=== PATIENT | female | born 1965 | race Caucasian/White ===

== ENCOUNTER 2018-06-14 08:34 | Emergency (ER) | payer BC, SELFPAY ==
[2018-06-14 08:41] VITALS: BP 134/86; PULSE 79; RESP 18; TEMP 36.5; O2SAT 96
--- NOTE | 2018-06-14 08:47 | DI.RAD_ITS ---
SYMPTOMS/DIAGNOSIS: PAIN, S/P BEING STRUCK BY A LADDER LEFT WRIST: No fracture or dislocation is seen. There is a metallic foreign body at the level of the 1st metacarpophalangeal joint. This may be an old injury. LEFT HAND: There is a metallic foreign body seen at the medial aspect of the 1st metacarpophalangeal joint in the soft tissues. There is no evidence of an acute fracture or dislocation. IMPRESSION: Metallic foreign body. No acute abnormality. RIGHT WRIST: No fracture or dislocation is seen. There are minimal degenerative changes. No bony erosions are seen. IMPRESSION: No acute abnormality.
--- NOTE | 2018-06-14 08:53 | ED.GENADUL_ITS ---
Discharge Plan Discharge Details Chief Complaint: Orthopedic Clinical Impression: Contusion of right wrist, Contusion of left wrist, Contusion of hand, left Reason For Visit: bilateral wrist pain Primary Care Provider: Erich Shrestha ED Provider: Jl Marin Disposition Patient Disposition: HOME Home Meds and New Rx's Prescriptions: Continue ibuprofen 800 MG tablet 800 mg PO tid prn Qty: 90 RF: 0 Discharge Instructions Instructions: Contusion in Adults (ED) Additional Instructions: you can take 800mg ibuprofen every 8 hours and also 1000mg tylenol every 6 hours for pain as needed if you have pain in one week see your primary care provider Discharge Data Discharge Physician: Jl Marin Medical Decision Making MDM Narrative Medical decision making narrative: patient here with bilateral wrist and left hand pain s/p being struck by ladder, will xray to eval for fracture/ dislocation though suspect contusion and abrasions are the cause of your pain due to lack of significant visible deformity xrays negative, suspect sprain vs contusion. I offered braces for comfort but she declined. Will d/c home and advised if pain continues to f/u with pcp HPI - General Adult General Date/Time Provider Initiated Documentation: 06/14/18 08:43 . Limitations to Documentation: no limitations . Information obtained by: patient . History of Present Illness 52 year old F presents to the emergency department with the chief complaint of right and left hand pain, described as moderate, with intensity rated at 5. Quality is described as aching, and is localized to the left, right and upper extremity. Patient reports no radiation. Patient started experiencing this minute(s) (30) and it has been constant. Rest improves symptom(s), Movement worsens symptoms . Patient notes no other symptoms.. Patient did receive the following treatments prior to arrival, none HPI Narrative-FOR DICTATION ONLY HPI Narrative: was holding a ladder for and upper part slid and struck her posterior wrists bilaterally, no fall or head trauma Related Data Allergies Allergy/AdvReac Type Severity Reaction Status Date / Time Penicillins Allergy Intermediate RASH; HIVES Unverified 06/14/18 08:43 Latex, Natural Rubber Allergy Unknown Topical Unverified 06/14/18 08:43 Irritation General Stated Complaint: Orthopedic VAISHNAVI: 4 Review of Systems Review of Systems All systems reviewed & are unremarkable except as noted in HPI and below Constitutional Denies chills, Denies fever(s) and Denies weakness Eyes Patient Denies loss of vision ENT Denies change in voice Cardiovascular Denies chest pain and Denies dyspnea Respiratory Denies dyspnea Gastrointestinal Denies abdominal pain, Denies nausea and Denies vomiting Genitourinary Denies dysuria Musculoskeletal Denies joint swelling Integumentary/Breasts Denies rash Neurologic Denies loss of vision and Denies weakness Psychiatric Denies depression Endocrine Denies cold intolerance and Denies heat intolerance Allergic/Immunologic Reports urticaria PFSH Family History Sister Essential hypertension Depression Hyperlipidemia Sister Diabetes Depression Hyperlipidemia Mother Diabetes Essential hypertension Cerebrovascular accident Father Personal history of malignant neoplasm Grandfather Personal history of malignant neoplasm Sister Diabetes Depression Hyperlipidemia Sister Substance abuse Sister Substance abuse Depression Brother Diabetes Heart disease Hyperlipidemia Son Alcohol abuse Depression Son Alcohol abuse Daughter No problems noted. Sister Depression Hyperlipidemia Other Liver damage Medical History ACL tear Anxiety Depression Migraine Obesity Seasonal allergies Social History Smoking/Tobacco Use Status: Never Surgical History Appendectomy Arthroplasty of knee Cholecystectomy Ligation of fallopian tube Repair, ACL Exam Const General: no acute distress Orientation: alert HENMT Head: normal to inspection Ears: external ears normal General nose exam: external nose normal Mouth: moist mucous membranes Eyes General: appearance normal, both eyes and all related structures Neck Neck: normal visual inspection Resp Effort & Inspection: normal respiratory effort and able to speak in complete sentences Cardio Rate: regular rate Skin General skin exam: no rashes or lesions noted Neuro General: alert, oriented x3, moves all extremities and normal light touch, pain and propioception Extrem General: other (abrasions to both posterior wrists, does have some rom though limited on extension, has pain upon palpation to both posterior wrists, normal sensation, normal rom of the fingers, no scaphoid pain, does have some mild pain in left hand as well no pain in right hand) Psych Mental Status: mental status grossly normal Course Vital Signs Temperature 36.5 C 06/14/18 08:41 Pulse 79 06/14/18 08:41 Respiratory Rate 18 06/14/18 08:41 Blood Pressure 134/86 06/14/18 08:41 Pulse Oximetry 96 06/14/18 08:41 Temperature 36.5 C 06/14/18 08:41 Pulse 79 06/14/18 08:41 Respiratory Rate 18 06/14/18 08:41 Blood Pressure 134/86 06/14/18 08:41 Pulse Oximetry 96 06/14/18 08:41
[2018-06-14] MEDS: Ibuprofen 600 MG TAB PO (09:03)
--- NOTE | 2018-06-14 09:44 | DI.VRAD_ITS ---
EXAM: XR Left Wrist Complete, 3 or more Views EXAM DATE/TIME: 06/14/2018 8:49 AM CLINICAL HISTORY: 52 years old, female; Pain; Wrist; Left; Patient HX: Ladder fell on wrist TECHNIQUE: XR Left wrist 3 or more views. COMPARISON: No relevant prior studies available. FINDINGS: Bones/joints: No acute fracture. Soft tissues: Metallic foreign body adjacent to the thumb. Unknown etiology IMPRESSION: No acute fracture. Dictated and Authenticated by: Connie Paulino MD. Ordering:EMMIE SUNG MD
--- NOTE | 2018-06-14 09:46 | DI.VRAD_ITS ---
EXAM: XR Left Hand Complete, 3 or more Views EXAM DATE/TIME: 06/14/2018 8:49 AM CLINICAL HISTORY: 52 years old, female; Pain; Hand; Left; Patient HX: Ladder fell on hand TECHNIQUE: XR Left hand 3 or more views. COMPARISON: No relevant prior studies available. FINDINGS: Bones/joints: Degenerative changes in the radiocarpal joint. No acute fracture. Soft tissues: Metallic foreign body in the soft tissues adjacent to the thumb IMPRESSION: No acute process Dictated and Authenticated by: Connie Paulino MD. Ordering:EMMIE SUNG MD
--- NOTE | 2018-06-14 09:47 | DI.VRAD_ITS ---
EXAM: XR Right Wrist Complete, 3 or more Views EXAM DATE/TIME: 06/14/2018 8:49 AM CLINICAL HISTORY: 52 years old, female; Pain; Wrist; Right; Patient HX: Ladder fell on wrist TECHNIQUE: XR Right wrist 3 or more views. COMPARISON: No relevant prior studies available. FINDINGS: Bones/joints: Degenerative changes in the radiocarpal joint No acute fracture.. Soft tissues: Normal. IMPRESSION: No acute process Dictated and Authenticated by: Connie Paulino MD. Ordering:EMMIE SUNG MD
[2018-06-14 10:04] VITALS: BP 134/86; PULSE 79; RESP 18; TEMP 36.5; O2SAT 96
== END 2018-06-14 10:05 | disposition home or self-care (01) ==
PROVIDERS: Emergency Provider Emergency Medicine; PCP Family Medicine
DX: S60.211A Contusion of right wrist, initial encounter (principal); S60.212A Contusion of left wrist, initial encounter; S60.222A Contusion of left hand, initial encounter; W20.8XXA Other cause of strike by thrown, projected or falling object, initial encounter
CPT/HCPCS: 99284; 73110; 73130; 99283

== ENCOUNTER 2018-07-03 13:10 | Outpatient (CLI) | payer BC, SELFPAY ==
--- NOTE | 2018-07-03 11:37 | DI.RAD_ITS ---
SYMPTOMS/DIAGNOSIS: ONGOING PAIN DORSAL WRIST, INJURY, S69.90XA RIGHT WRIST: Three views. No bone or joint abnormality is identified. No radiopaque foreign bodies are seen in the soft tissues. IMPRESSION: Negative examination.
== END 2018-07-03 13:30 ==
PROVIDERS: PCP Family Medicine; Visit Provider Family Medicine
DX: M25.531 Pain in right wrist (principal); S69.91XD Unspecified injury of right wrist, hand and finger(s), subsequent encounter
CPT/HCPCS: 73110

== ENCOUNTER 2019-01-29 01:19 | Outpatient (CLI) | payer BC, SELFPAY ==
[2019-01-29 08:39] LABS: HCT 42.8 % (36.0-46.0); HGB 13.5 g/dL (12.0-15.5); Mean Corp. HGB Concentration 31.5 g/dL (32.0-36.0); Mean Corpuscular Volume 91.8 fL (80-95); Mean Platelet Volume 9.4 fL (8.0-11.0); Platelet Count 349 x1000/uL (130-400); RBC 4.66 m/cumm (4.00-5.20); White Blood Cell Count 7.41 k/cumm (4.4-10.8)
[2019-01-29 09:23] LABS: ALT 52 U/L (12-78); AST 24 U/L (15-37); Albumin 3.7 g/dL (3.4-5.0); Alkaline Phosphatase 117 U/L (46-116); Anion Gap 7.9 mmol/L (3-11); BUN 20 mg/dL (7-18); Bilirubin, Total 0.3 mg/dL (0.2-1.0); CO2 29.1 mmol/L (21.0-32.0); CREATININE 0.93 mg/dL (0.55-1.02); Calcium 8.9 mg/dL (8.5-10.1); Chloride 104 mmol/L (98-107); Glucose 114 mg/dL (70-100); Potassium 4.9 mmol/L (3.5-5.1); Sodium 141 mmol/L (136-145); TSH (W/Ref FT4) 2.27 uIU/mL (0.358-3.74); Total Protein 7.2 g/dL (6.4-8.2)
== END 2019-01-29 01:39 ==
PROVIDERS: PCP Family Medicine; Visit Provider Family Medicine
DX: F41.9 Anxiety disorder, unspecified (principal); R00.2 Palpitations
CPT/HCPCS: 36415; 80053; 85027; 84443

== ENCOUNTER 2019-02-12 02:13 | Outpatient (CLI) | payer BC, SELFPAY ==
--- NOTE | 2019-02-17 12:39 | HOLTER_ITS ---
HOLTER MONITOR DATE OF DICTATION February 17, 2019 STUDY INDICATIONS: Palpitations. REQUESTING PROVIDER Erich Shrestha M.D. FINDINGS: The patient was monitored for two days. Baseline rhythm sinus rhythm. Average heart rate 87 beats per minute, range 65 to 129 beats per minute. 2 PVCs. No VT. 3 PACs. No SVT. No pauses greater than 3 seconds. No higher degree heart block. One patient event, which did not correlate with arrhythmia. FINAL INTERPRETATION Normal study. Dev Cornelius M.D. JERRI/selvin T - 02/17/19
== END 2019-02-12 02:33 ==
PROVIDERS: PCP Family Medicine; Visit Provider Family Medicine
DX: R00.2 Palpitations (principal); I49.3 Ventricular premature depolarization; I49.1 Atrial premature depolarization
CPT/HCPCS: 93225

== ENCOUNTER 2019-02-15 17:37 | Outpatient (CLI) | payer BC, SELFPAY | END 2019-02-15 17:57 | PROVIDERS: PCP Family Medicine; Visit Provider Family Medicine | DX: R00.2 Palpitations (principal); I49.3 Ventricular premature depolarization; I49.1 Atrial premature depolarization | CPT/HCPCS: 93226 ==

== ENCOUNTER 2019-04-23 02:25 | Outpatient (CLI) | payer BC, SELFPAY ==
--- NOTE | 2019-04-23 10:10 | NS.NUTBLAN_ITS ---
DESCRIPTION/ASSESSMENT: Georgie Thacker presents for nutrition consult for newly diagnosed diabetes with focus on weight loss. A1c 6.7. She states she is symptomatic with changes in vision and peripheral neuropathy. There is concern that she may also have MS. She monitors blood sugars fasting 160-190. Georgie skips breakfast or has fruit and chocolate milk, or has 1/2 pakistani muffin, 2 sausage, grapes and pineapple, and grape juice.. Salad or meat entree from cafeteria for lunch or sandwich with chips for supper. She does not snack. She has learned to eat spaghetti squash in place of spaghetti. She feels she generally eats healthy. She has already started using smaller plates. She has back and hip pain making physical activity difficult. She admits to high stress as a single parent with significant school debt. She further admits to anxiety. She was in foster care and continues in therapy. She admits to seeing things darkly. INTERVENTION: Discussed weight management strategies; reviewed diabetes food guide. Discussed tracking food on lacey. Discussed mindful eating practices. Discussed physical activity for shorter periods daily. Discussed monitoring for meaning. PLAN: Georgie will use [employer] lacey to track her food for a couple of days She will walk or perform strengthening exercises daily. She wishes to return in 3 weeks for follow up.
== END 2019-04-23 02:45 ==
PROVIDERS: PCP Family Medicine; Visit Provider Dietitian, Registered
DX: E11.9 Type 2 diabetes mellitus without complications (principal); Z71.3 Dietary counseling and surveillance
CPT/HCPCS: 97802

== ENCOUNTER 2019-08-24 07:56 | Outpatient (CLI) | payer BC, SELFPAY ==
--- NOTE | 2019-08-24 15:33 | DI.RAD_ITS ---
EXAM: XR ANKLE LT COMPLETE INDICATION: ankle pain S92.194C ANKLE INJURY. COMPARISON: No exams were available for comparison TECHNIQUE: 2D digital imaging was performed. FINDINGS: No acute fracture or dislocation is present. There is an enthesophyte at the Achilles insertion site on the calcaneus. The soft tissues are unremarkable. IMPRESSION: No acute fracture or dislocation.
== END 2019-08-24 08:16 ==
PROVIDERS: PCP Family Medicine; Visit Provider Nurse Practitioner
DX: M25.572 Pain in left ankle and joints of left foot (principal); S99.912A Unspecified injury of left ankle, initial encounter
CPT/HCPCS: 73610

== ENCOUNTER 2019-09-22 01:15 | Outpatient (CLI) | payer BC, SELFPAY ==
--- NOTE | 2019-09-22 15:28 | DI.MAMMO_ITS ---
EXAM: MG MAMMO SCREENING CLINICAL HISTORY: screening Z12.39 TECHNIQUE: Bilateral full field digital CC and MLO mammographic images were obtained with 3D tomosyn thesis and utilizing computer aided detection (CAD). COMPARISON: Available for comparison. FINDINGS: Masses/Architectural Distortion: No suspicious masses are present. There are scattered well-circumsc ribed nodules in both breasts. Microcalcifications: No suspicious pleomorphic-type are seen. Skin Thickening/Nipple Retraction: None. IMPRESSION: 1. No significant interval change with no specific features of malignancy noted. 2. Unless there is more urgent need, screening mammography is recommended, as per [place] [employer] guidelines. BI-RADS Cat 2 - Benign Findings Breast Density - Category B - Scattered areas of fibroglandular density A negative radiographic report should not delay biopsy if a dominant or clinically suspicious mass is present. Up to ten percent of cancers are not identified on mammography. A negative report may reinforce clinical impression. Adenosis and dense breasts may obscure an underlying neoplasm. False positive reports average 6 to 10%. Patient will receive a letter notifying them of these results.
== END 2019-09-22 01:35 ==
PROVIDERS: PCP Family Medicine; Visit Provider Family Medicine
DX: Z12.31 Encounter for screening mammogram for malignant neoplasm of breast (principal); N64.59 Other signs and symptoms in breast
CPT/HCPCS: 77063; 77067

== ENCOUNTER 2020-03-17 03:01 | Outpatient (CLI) | payer BC, SELFPAY ==
[2020-03-17 09:48] LABS: Hemoglobin A1C 6.1 % (3.8-5.6)
[2020-03-17 10:14] LABS: Anion Gap 6.5 mmol/L (3-11); BUN 18 mg/dL (7-18); CO2 28.5 mmol/L (21.0-32.0); CREATININE 0.92 mg/dL (0.55-1.02); Calcium 9.4 mg/dL (8.5-10.1); Chloride 103 mmol/L (98-107); Glucose 113 mg/dL (74-106); Potassium 4.3 mmol/L (3.5-5.1); Sodium 138 mmol/L (136-145)
== END 2020-03-17 03:21 ==
PROVIDERS: PCP Family Medicine; Visit Provider Family Medicine
DX: R73.01 Impaired fasting glucose (principal); E87.5 Hyperkalemia; Z83.3 Family history of diabetes mellitus
CPT/HCPCS: 36415; 80048; 83036

== ENCOUNTER 2020-11-28 23:09 | Outpatient (REF) | payer BC, SELFPAY ==
[2020-11-28 21:57] LABS: ALT 37 U/L (14-59); AST 18 U/L (15-37); Alkaline Phosphatase 125 U/L (46-116); Anion Gap 8.7 mmol/L (3-11); BUN 17 mg/dL (7-18); Bilirubin, Total 0.3 mg/dL (0.2-1.0); CO2 26.3 mmol/L (21.0-32.0); CREATININE 0.9 mg/dL (0.55-1.02); Calcium 9.3 mg/dL (8.5-10.1); Calculated LDL 115 mg/dL (<100); Chloride 102 mmol/L (98-107); Cholesterol 216 mg/dL (<200); Glucose 95 mg/dL (74-106); HDL Cholesterol 46 mg/dL (40-60); Potassium 4.4 mmol/L (3.5-5.1); Sodium 137 mmol/L (136-145); Total Protein 7.8 g/dL (6.4-8.2); Triglyceride 276 mg/dL (<150)
[2020-12-04 16:30] LABS: 1,25-Dihydroxyvitamin D 54 pg/mL (18-78)
== END 2020-11-28 23:10 | disposition home or self-care (01) ==
LOC: LBN 23:09
PROVIDERS: Nurse Practitioner Family; PCP Family Medicine; Visit Provider Family Medicine
DX: Z00.00 Encounter for general adult medical examination without abnormal findings (principal); R73.01 Impaired fasting glucose; Z83.3 Family history of diabetes mellitus
CPT/HCPCS: 80053; 80061; 82652

== ENCOUNTER 2020-12-14 02:12 | Outpatient (CLI) | payer BC, SELFPAY ==
--- NOTE | 2020-12-14 12:26 | DI.MAMMO_ITS ---
EXAM: MG MAMMO SCREENING CLINICAL HISTORY: screening,Z12.39 TECHNIQUE: Bilateral full field digital CC and MLO mammographic images were obtained with 3D tomosyn thesis and utilizing computer aided detection (CAD). COMPARISON: Available for comparison. FINDINGS: Masses/Architectural Distortion: There are bilateral breast nodules which appears stable. Microcalcifications: No suspicious pleomorphic-type are seen. Skin Thickening/Nipple Retraction: None. IMPRESSION: 1. No significant interval change with no specific features of malignancy noted. 2. Unless there is more urgent need, screening mammography is recommended, as per [place] [employer] guidelines. BI-RADS Category 2 - Benign Findings Breast Density - Category B - Scattered areas of fibroglandular density Breast density category C or D implies that the patient has dense breast tissue. Dense breast tissue is very common and is not abnormal but dense breast tissue can make it harder to find cancer on a ma mmogram. Also, dense breast tissue may increase their breast cancer risk. This information about the result of the mammogram report was provided to the patient to raise their awareness. Use this report when you speak with the patient about their risks for breast cancer, which includes their family hist ory. At that time, you may recommend for more screening tests (Ultrasound or MRI) as they might be us eful based on their risk. A negative radiographic report should not delay biopsy if a dominant or clinically suspicious mass is present. Up to ten percent of cancers are not identified on mammography. A negative report may reinforce clinical impression. Adenosis and dense breasts may obscure an underlying neoplasm. False positive reports average 6 to 10%. Patient will receive a letter notifying them of these results.
== END 2020-12-14 02:32 ==
PROVIDERS: PCP Family Medicine; Visit Provider Nurse Practitioner Family
DX: Z12.31 Encounter for screening mammogram for malignant neoplasm of breast (principal)
CPT/HCPCS: 77063; 77067

== ENCOUNTER 2021-06-20 03:58 | Outpatient (CLI) | payer BC, SELFPAY ==
[2021-06-20 13:00] LABS: Calculated LDL 118 mg/dL (<100); Cholesterol 217 mg/dL (<200); HDL Cholesterol 48 mg/dL (40-60); Triglyceride 256 mg/dL (<150)
== END 2021-06-20 03:59 | disposition home or self-care (01) ==
LOC: LOS 03:58
PROVIDERS: PCP Nurse Practitioner Family; Visit Provider Nurse Practitioner Family
DX: E78.5 Hyperlipidemia, unspecified (principal)
CPT/HCPCS: 36415; 80061

== ENCOUNTER 2021-11-01 10:14 | Outpatient (CLI) | payer BC, SELFPAY ==
--- NOTE | 2021-11-01 08:45 | DI.RAD_ITS ---
Exam(s) XR KNEE RT 4V AP,LAT,JAYMIE,PAT EXAM: XR KNEE RT 4V AP,LAT,JAYMIE,PAT CLINICAL HISTORY: RIGHT KNEE PAIN S/P ACL REPAIR. TECHNIQUE: 2D digital imaging was performed. COMPARISON: CR RIGHT KNEE 3 VIEWS from 07/24/2014 MR MR KNEE RIGHT WO CONTRAST from 02/12/2021 FINDINGS: There is evidence of ACL surgery. No fractures. There does appear to be a moderate-sized joint effu mena. No obvious degenerative changes. No osseous lesions. IMPRESSION: Previous ACL surgery. Joint effusion. DATA REPOSITORY: RADIATION DOSE DELIVERED:
== END 2021-11-01 10:15 | disposition home or self-care (01) ==
LOC: DIORS 10:14
PROVIDERS: PCP Nurse Practitioner Family; Referring Provider Nurse Practitioner Family; Visit Provider Student in an Organized Health Care Education/Training Program
DX: M25.561 Pain in right knee (principal); Z98.890 Other specified postprocedural states
CPT/HCPCS: 73564

== ENCOUNTER 2021-11-07 00:32 | Outpatient (CLI) | payer BC, SELFPAY ==
--- NOTE | 2021-11-07 14:50 | DI.MRI_ITS ---
Exam(s) MR LOWER JOINT RT WO EXAM: MR LOWER JOINT RT WO CLINICAL HISTORY: Evaluate foreign body lateral compartment, internal derangement, M23.92, TECHNIQUE: Multiplanar multisequence MRI of the knee was performed. COMPARISON: MR MR KNEE RIGHT WO CONTRAST from 02/12/2021, performed at outside institution FINDINGS: EFFUSION: There is a moderate-sized joint effusion, similar to the previous study. There is no Neely cyst in the popliteal fossa. MARROW:There is no evidence of fracture, bone contusion, nor significant osseous lesions PATELLOFEMORAL COMPARTMENT: The quadriceps tendon is intact. The patellar ligament is intact. There is a new significant full-thickness defect in the retropatellar cartilage at the mid aspect, a finding which was not evident on the prior outside study of February 2021.This measures approximately 4 mi llimeters wide by 4 millimeters craniocaudal. There is no subjacent subarticular signal abnormality in the patella. Also no intraosseous signal to suggest recent patellar dislocation and there are no patellar retinacular tears. CRUCIATE LIGAMENTS: Anterior cruciate ligament graft is intact. It does not exhibit significant abno rmal signal nor thinning.The posterior cruciate ligament is intact. MEDIAL COMPARTMENT/MEDIAL MENISCUS: There is now a tear in the medial aspect of the posterior horn of themedial meniscus, approximately 7 millimeters in from the root, not previously present. No bucket -handle configuration. No meniscal extrusion nor intrusion. Anterior horn is intact. There is a se ptated fluid collection behind the posterior horn of the medial meniscus again noted. This may possi ronal represent a degenerative meniscal cyst.. There is been interval development of foci of full-thickness cartilage thinning over the medial femor al condyle weight-bearing surface, not previously evident on the outside study of February 2021. This edwin sures 1.5 cm AP by 4 millimeters wide at maximum and is full-thickness and was not previously present . There is no associated subarticular bone edema.There is, however, mild subarticular bone edema in the posterior aspect of medial tibial plateau, more so than previous. MEDIAL COLLATERAL LIGAMENT: Intact LATERAL COMPARTMENT/LATERAL MENISCUS: There are no obvious new tears of the lateral meniscus.No new c artilage denudation over the lateral condyle main weight-bearing surface although there is some carti brinda thinning evident in the anterior intercondylar notch region. ILIOTIBIAL BAND: Intact LATERAL COLLATERAL LIGAMENT COMPLEX: The fibular collateral ligament is intact. The biceps femoris t endon is intact.Some fluid is noted within the popliteus tendon sheath. IMPRESSION: 1. Compared to the prior outside MRI scan of February 2021 the ACL graft remains intact. However there ar e some new multilevel findings as described above. 2. There is a new full-thickness defect in the mid aspect of the retropatellar cartilage measuring ap proximately 4 x 4 millimeters, not associated with bone edema in the posterior patella. 3. There is a tear in the posterior horn of the medial meniscus now present and there is also been in terval development of a significant area of full-thickness cartilage denudation over the medial femor al condyle with measurements as above, also not associated with subarticular edema within the overlyi ng femoral condyle. There is mild bone edema in the posterior aspect of the medial tibial plateau. 4. Some cartilage thinning is noted over the anterior intercondylar notch region. Medial and lateral collateral ligament complexes appear intact. PCL remains intact. DATA REPOSITORY:
== END 2021-11-07 00:52 ==
PROVIDERS: PCP Nurse Practitioner Family; Visit Provider Student in an Organized Health Care Education/Training Program
DX: M25.561 Pain in right knee (principal); M25.461 Effusion, right knee; M23.8X1 Other internal derangements of right knee; S83.241A Other tear of medial meniscus, current injury, right knee, initial encounter; M94.8X6 Other specified disorders of cartilage, lower leg; X58.XXXA Exposure to other specified factors, initial encounter
CPT/HCPCS: 73721

== ENCOUNTER 2021-11-28 02:19 | Outpatient (CLI) | payer BC, SELFPAY ==
[2021-11-28 21:19] LABS: COVID-19 PCR Negative (Negative)
[2021-11-28 23:19] LABS: Source Nasal/Nares
== END 2021-11-28 02:20 | disposition home or self-care (01) ==
LOC: LBO 02:19
PROVIDERS: PCP Nurse Practitioner Family; Visit Provider Student in an Organized Health Care Education/Training Program
DX: Z20.822 Contact with and (suspected) exposure to COVID-19 (principal)
CPT/HCPCS: 87635

== ENCOUNTER 2021-11-29 02:51 | Outpatient (CLI) | payer BC, SELFPAY ==
[2021-11-29 13:28] LABS: Calculated LDL 130 mg/dL (<100); Cholesterol 224 mg/dL (<200); HDL Cholesterol 52 mg/dL (40-60); Triglyceride 212 mg/dL (<150)
== END 2021-11-29 02:52 | disposition home or self-care (01) ==
LOC: LBO 02:51
PROVIDERS: PCP Nurse Practitioner Family; Visit Provider Nurse Practitioner Family
DX: E78.5 Hyperlipidemia, unspecified (principal)
CPT/HCPCS: 36415; 80061

== ENCOUNTER 2021-11-30 09:28 | Day surgery (SDC) | payer BC, SELFPAY ==
[2021-11-30] VITALS (10 sets, daily range): BP systolic 117–137; BP diastolic 60–85; PULSE 61–93; RESP 14–22; TEMP 36–36.3; O2SAT 96–100; BMI 38.9
[2021-11-30] MEDS: Lactated Ringers 1,000 ML 100 ML IV (10:11)
--- NOTE | 2021-11-30 10:19 | W.ANESPRE ---
General Info Date of Service Date Performed: 11/30/21 Height: 5 ft 6 in Weight: 109.4 kg Body Mass Index (BMI): 38.9 Surgical Procedure: Operation Date: 11/30/21 09:55 Proposed Procedure Side Surgeon p Revision Knee Arthroscopy w/any indicated meniscal, chondral and synovial surgery/ possible microfracture Right Tyler Gates MD Meds Allergies and Home Medications Allergies Allergy/AdvReac Type Severity Reaction Status Date / Time adhesive tape Allergy Intermediate Skin Rash Unverified 11/28/21 14:07 Penicillins Allergy Intermediate RASH; HIVES Verified 11/28/21 14:07 Latex, Natural Rubber Allergy Unknown Topical Verified 11/28/21 14:07 Irritation Home Medication Medication Instructions Recorded fluticasone propionate 50 2 spray INTRANASAL DAILY #15.8 ml 07/11/20 mcg/actuation nasal spray,suspension (Allergy Relief (fluticasone)) simvastatin 10 mg tablet 10 mg PO QHS #90 tab 06/22/21 Current Visit Medications: Current Medications Generic Name Dose Route Start Last Admin Trade Name Freq PRN Reason Stop Dose Admin Ringer's Solution 1,000 mls @ 100 mls/hr 11/30/21 06:00 11/30/21 10:11 IV 12/29/21 23:59 100 mls/hr INFUSION CORINE Administration Cefazolin Sodium 3,000 mg/ 100 mls @ 200 mls/hr 11/30/21 06:00 Sodium Chloride IVPB 11/30/21 16:00 PREOP CORINE IV Miscellaneous Supplies 1 each 11/30/21 06:00 Iv Access IV 12/29/21 23:59 DIRECTED CORINE Oxycodone HCl 5 - 10 mg 11/30/21 07:03 Oxycodone 5 Mg Tab PO Q4H PRN PRN Sodium Chloride 0 ml 11/30/21 06:00 Normal Saline Flush 10 Ml Syr IV 12/29/21 23:59 PRN PRN Sodium Chloride 0 ml 11/30/21 06:00 Normal Saline 10 Ml Vial IJ 12/29/21 23:59 DIRECTED PRN Sterile Water 0 ml 11/30/21 06:00 Water,Injection,Sterile 10 Ml Vial IJ 12/29/21 23:59 DIRECTED PRN PFSH Active Problems Active Problems: Problem Status Onset Code Chondromalacia, right knee M94.261 Foreign body of knee S80.259A Upper abdominal pain R10.10 Muscle cramp R25.2 Hyperlipemia E78.5 PND (post-nasal drip) R09.82 Internal derangement of knee joint Tendonitis of ankle M77.50 Family history of diabetes mellitus (DM) Z83.3 Depressive disorder F32.9 History of bilateral ligation of fallopian tubes Z98.51 History of vein stripping Z98.890 Other ectopic without intrauterine O00.80 Rupture of anterior cruciate ligament of right knee S83.511A Status post appendectomy Z90.49 Status post arthroscopy of right knee 08/17/14 Z98.890 Status post cholecystectomy Z90.49 Anxiety F41.9 Impaired fasting glucose R73.01 Varicose veins of lower extremity I83.90 Seasonal allergic rhinitis J30.2 Migraine G43.909 Increased body mass index R63.8 Ganglion cyst 08/22/17 M67.40 Medical History Medical History ACL tear Anxiety Depression Migraine Obesity Seasonal allergies Surgical History Surgical History Appendectomy Arthroplasty of knee 08/17/14-[facility]/RIGHT Cholecystectomy Ligation of fallopian tube Repair, ACL 08/17/14 RIGHT-[facility] Tobacco Smoking/Tobacco Use Status: Never Alcohol Alcohol Intake: current Alcohol intake frequency: a few times a month Substance Use Substance use: Never Substance use type: does not use Vital Signs and Lab Results Vital Signs Most Recent Vital Signs in EMR: Most Recent Vital Signs Temp Pulse Resp BP Pulse Ox 36.1 C L 93 H 18 137/85 96 11/30/21 09:49 11/30/21 09:49 11/30/21 09:49 11/30/21 09:49 11/30/21 09:49 Lab Results Blood Type / Crossmatch: No Data to Display Complete Blood Count: No Data to Display Complete Metabolic Panel: No Data to Display Liver Function Panel: No Data to Display Coagulation Panel: No Data to Display Cardiac Panel: No Data to Display Arterial Blood Gas: No Data to Display Venous Blood Gas: No Data to Display Pancreas Panel: No Data to Display Thyroid Panel: No Data to Display Infectious Disease: Coronavirus (COVID-19)(PCR) Negative (Negative) 11/28/21 08:40 11/28/21 Coronavirus 2019 Source Nasal/Nares 11/28/21 08:40 11/28/21 Blood Cultures: No Data to Display Toxicology Panel: No Data to Display Imaging and Studies Imaging and Studies Study information below may be from another EMR and interpreted by another provider. Please see original notes in EMR for more complete details. EKG Summary: SR, left atrial enlargement 02/05/19 Anesthesia Assessment and Plan Anesthesia History Personal History: No History of Anesthesia Complications Family History: No Family History of Anesthesia Complications Exercise Tolerance Exercise Tolerance: Metabolic Equivalents>4 Pertinent Negatives Pertinent Negatives: No Symptoms of GERD, No Major Cardiovascular Symptoms or Complaints, No Major Pulmonary Symptoms or Complaints and No History of CVA/TIA Cardiac & Pulmonary Exam Cardiac Exam: Normal S1/S2 Heart Sounds Pulmonary Exam: Clear Bilateral Breath Sounds Implantable Cardiac Device Does patient have a Pacemaker or an ICD?: No Airway Exam Known Difficult Airway: No Mallampati Class: 2 Mouth Opening: Normal (> 3cm) Thyromental Distance: Less than 3 cm Neck Range of Motion: Full ROM Neck Circumference: Normal Teeth Condition: Normal Dentition ASA Classification ASA Score: ASA 2 Emergency Case?: No NPO Status NPO Status: NPO Clears >2 hours, Solids >8 hours Anesthesia Plan Resuscitation Status: Full Code Anesthesia Technique: General Anesthesia Airway Planned: LMA Pain Management: Intrathecal Analgesia Monitors Used: Standard Monitors Preoperative Comments:: Anxiety
--- NOTE | 2021-11-30 12:00 | W.PM.OP ---
Operative Note Operative Note DATE OF PROCEDURE: 11/30/21 PRE-OP DIAGNOSIS: Right knee 1. Medial meniscus tear 2. Chondromalacia 3. Loose body POST-OP DIAGNOSIS: same Right knee 1. Medial meniscus tear 2. Chondromalacia 3. Synovitis PROCEDURE: Right knee 1. Partial medial meniscectomy, CPT #32608 2. Greater than 2 compartment synovectomy, CPT #26538: Patellofemoral, medial, intercondylar, and posterior lateral 3. Chondroplasty, CPT #39836: Trochlear, patellar, and medial femoral condyle SURGEON: Tyler Gates TECHNICIAN BIOLOGICAL HEALTH: None None ANESTHESIA TYPE: Local By Surgeon and General LMA/ETT Refer to Anesthesia Record PATHOLOGY: none sent TOURNIQUET TIME: 0 COMPLICATIONS: None Patient was transported to: PACU Patient's condition: stable Indications: Please see complete medical record for details. Findings: Exam under anesthesia: Full range of motion, no instability, no mechanical symptoms Negative Major. Negative pivot shift. Arthroscopic findings: Mild suprapatellar adhesions. Significant full-thickness cartilage loss central and distal trochlea. Localized full-thickness cartilage loss undersurface patella apex. Cartilage thinning fibrillations and near full-thickness cartilage loss medial femoral condyle. Degenerative type posterior horn and root medial meniscus tearing with no meniscus instability. Intact ACL reconstruction graft. Intact PCL. No significant posterior lateral loose body. Only small posterior lateral chondral or meniscal loose body that was debrided and removed with mechanical shaver Relatively preserved and intact lateral compartment cartilage and lateral meniscus. Procedure Description: In the operating room, genral anesthesia was induced. The patient was positioned supine on the operating room table. All bony prominences were well-padded. Preoperative antibiotics were administered. The knee was prepped and draped in the usual sterile fashion. The correct patient, procedure, and side of the procedure were all verified prior to incision. Exam under anesthesia was performed. 10 cc of 1% lidocaine and 0.25% bupivacaine containing epinephrine was infiltrated about the prior surgical site anteromedial and anterolateral knee arthroscopy portals. The portals were established and a complete diagnostic arthroscopy was performed with relevant findings detailed above. The mechanical shaver was used to remove pathologic synovium from the patellofemoral, medial, intercondylar, and posterior lateral areas. The patellofemoral compartment had moderate thickening and mild adhesions that were resected with the mechanical shaver. The medial compartment had inflammatory synovitis likely from the degenerative meniscus and cartilage changes that was trimmed to a stable nonimpinging margin. The intercondylar region had marginal osteophytes that were resected radial along with synovitis centrally here as well. The posterior lateral area had small cartilaginous versus chondral loose body that was resected with the mechanical shaver and minimal inflammatory or pathologic changes to correlate with the patient's posterior lateral knee pain. Using a combination of hand instruments including meniscal biters and a power shaver and working through the anteromedial and anterolateral compartments the posterior horn of the medial meniscus was debrided of all torn tissue to a stable margin. Care was taken to preserve as much meniscus tissue was possible. The meniscal remnant was probed and found to have a stable margin, stable root all there was a chronic partial tear versus prior repair present, and no other tears. There was significant cartilage delamination and full-thickness loss with unstable cartilage margins in the central trochlear, undersurface patella apex, and to a lesser extent the medial femoral condyle. Mechanical shaver was used to resect cartilage to a stable margin prevent propagation and additional loose bodies mostly at the trochlea take care to resect only minimal amount of cartilage necessary. The posterior lateral compartment of the knee was once again visualized through the intercondylar area viewing from anterior medial. The knee was positioned in various degrees of flexion with direct palpation posterior and laterally. There is no loose body or pathologic finding in this compartment to correlate with the artifact on MRI. Under direct arthroscopic visualization an 18-gauge needle was passed into the knee from superolateral into the suprapatellar pouch. The knee was copiously irrigated with arthroscopic fluid until there was a clear effluent before being drained of all fluid. The anteromedial and anterolateral portals were closed in 3-0 Monocryl in a buried interrupted fashion. 20 cc of 1% lidocaine and 0.25% bupivacaine with epinephrine containing 4 mg of morphine was infiltrated into the knee through the previously placed needle. Mastisol, Steri-Strips, and 4 x 4 gauze were applied over the incisions followed by sterile soft roll. The knee was then wrapped gently with an YAEL comressive bandage. The patient awoke from anesthesia without complication and was transferred to the recovery room in a stable condition.
[2021-11-30] MEDS: ceFAZolin 3,000 MG in Normal Saline 100 ML 200 MG IVPB (12:06)
[2021-11-30] MEDS: Bupivacaine 0.25% Pres-Free 30 ML VIAL (12:27)
[2021-11-30] MEDS: EPINEPHrine 30 MG/30 ML VIAL (12:27)
[2021-11-30] MEDS: MORPHine 4 MG/ML SYR (12:56)
--- NOTE | 2021-11-30 13:09 | W.PM.DSUDISC ---
Discharge Plan Disposition Patient Disposition: HOME Condition: Stable Discharge Details Reason For Visit: Right knee surgery Attending Provider: Tyler Gates Primary Care Provider: Alan Medina Home Meds and New Rx's Prescriptions: New oxycodone 5 mg tablet 5 mg PO Q4H MDD 30 mg PRN (Reason: moderate to severe pain) Qty: 6 0RF Continued fluticasone propionate [Allergy Relief (fluticasone)] 50 mcg/actuation spray,suspension 2 spray intranasal DAILY Qty: 15.8 0RF Rx Instructions: administer into each nostril simvastatin 10 mg tablet 10 mg PO QHS Qty: 90 4RF Discharge Instructions Additional Instructions: Surgery: Right knee revision arthroscopy with partial medial meniscectomy, chondroplasty, and synovectomy Activity: Weightbearing as tolerated. Advance range of motion as comfort allows. No knee brace or crutches needed. Recommend avoiding high?impact activities, pivoting, and squatting for 6-8 weeks. A physical therapy prescription will be sent electronically to start in 2-3 weeks. Prescriptions: Oxycodone 5 mg take 1 every 4-6 hours as needed for severe pain You may use glbl-lyg-[id number] Tylenol (acetaminophen) as needed for mild pain. These pain medications may be taken all at once or in different combinations as needed. Also, recommend Colace (docusate) as a stool softener as surgery and pain medicine cause constipation. Dressings: Leave dressing in place for 3 days. May then remove and leave open to air or cover incisions with Band-Aids. May shower after 5 days. Follow-up: 10-14 days with an orthopedic physician conference assistant in 6-[address] Gates Let us know right away if you develop any redness, drainage, fevers, chest pain, or trouble breathing. Do not drink alcohol or drive for at least 24 hours after anesthesia. Please call the office during business hours with any questions or concerns. Referrals: Tyler Gates MD [ [facility] STAFF PHYSICIAN] - Discharge Orders Discharge Orders: Discharge Order (Routine); Ordered 11/30/21 Ordered By: Tyler Gates DS: Diagnosis Discharge Diagnosis (1) Chondromalacia, right knee: Status: Acute (2) Derangement of medial meniscus of right knee due to old injury: Status: Acute
[2021-11-30] MEDS: fentaNYL 100 MCG/2 ML VIAL IVP ×2 (13:40→13:50)
--- NOTE | 2021-11-30 14:23 | W.ANESPOSTOP ---
Postoperative Evaluation Date, Time and Location Date Performed: 11/30/21 Time Performed: 14:24 Patient Location: Day Surgery Unit Vital Signs Most Recent Imported Vital Signs: Most Recent Vital Signs Temp Pulse Resp BP Pulse Ox 36 C L 68 16 129/85 99 11/30/21 14:06 11/30/21 14:06 11/30/21 14:06 11/30/21 14:06 11/30/21 14:06 Pain Score Most Recent Pain Score: Most Recent Pain Score Pain Level 5 11/30/21 14:06 Assessment Mental Status: Awake (Alert & Oriented to Patient Baseline) Airway and Respiratory Function: Patent airway with normal (patient baseline) respiratory exam Cardiovascular Function: Hemodynamically Stable Hydration Status: Adequately Hydrated Nausea & Vomiting: No Nausea or Vomiting Pain: Pain is tolerable per patient Peripheral Nerve Block: Patient did not receive a nerve block Teaching Patient Teaching: Discussed Safe Use of Pain Medication Given Recent Anesthesia
[2021-11-30] MEDS: oxyCODONE 5 MG TAB PO (14:30)
== END 2021-11-30 15:15 | disposition home or self-care (01) ==
PROVIDERS: PCP Nurse Practitioner Family; Visit Provider Student in an Organized Health Care Education/Training Program
PROC: (CPT 29870; principal; 2021-11-30 09:45)
DX: M23.203 Derangement of unspecified medial meniscus due to old tear or injury, right knee (principal); M65.861 Other synovitis and tenosynovitis, right lower leg; M94.261 Chondromalacia, right knee; E78.5 Hyperlipidemia, unspecified; R73.01 Impaired fasting glucose; M23.41 Loose body in knee, right knee
CPT/HCPCS: 29876; 29881; J0690; J1100; J1885; J2001; J2250; J2270; J2405; J2704; J3010

== ENCOUNTER 2022-01-10 16:01 | Outpatient (REF) | payer BC, SELFPAY ==
--- NOTE | 2022-01-10 15:00 | PAPFT_PTH ---
PATIENT: Elke Walker LOC: [facility] U#:[id number] AGE/SX: 56/F ROOM: RE01/10/[address]: Solange Adame MD : [id number] BED: DIS: 01/10/2022 SPEC #: [id number] RECD: 01/10/22 17:20 STATUS: JARRELL OTOOLE #: [id number] THOMAS: 01/10/22 15:[address]: Solange Adame DEPT: [facility] Cytology RECD BY: Bela Enriquez ENTERED: 01/10/22 17:21 SP TYPE: PAPFT JODIE DR: Alan Medina, PJ Tissues: 1 - CX/ENDOCX FOR PAP SMEARS Procedures: PAP THIN PREP/UVM Screening HPV DNA PROBE Comments: [id number]
== END 2022-01-10 16:02 | disposition home or self-care (01) ==
LOC: LBN 16:01
PROVIDERS: PCP Nurse Practitioner Family; Visit Provider Obstetrics & Gynecology
DX: Z12.4 Encounter for screening for malignant neoplasm of cervix (principal); Z11.51 Encounter for screening for human papillomavirus (HPV)
CPT/HCPCS: 88142; 87624

== ENCOUNTER 2022-07-08 17:21 | Outpatient (REF) | payer BC, SELFPAY ==
[2022-07-08 20:59] LABS: ALT 47 U/L (14-59); AST 20 U/L (15-37); Albumin 3.9 g/dL (3.4-5.0); Alkaline Phosphatase 130 U/L (46-116); Anion Gap 8.1 mmol/L (3-11); BUN 20 mg/dL (7-18); Bilirubin, Total 0.2 mg/dL (0.2-1.0); CO2 28.9 mmol/L (21.0-32.0); CREATININE 0.9 mg/dL (0.55-1.02); Calcium 9.1 mg/dL (8.5-10.1); Chloride 103 mmol/L (98-107); Estimated GFR 74.57 (mL/min/1.73m2); Glucose 102 mg/dL (74-106); Lipase 131 U/L (73-393); Potassium 4.3 mmol/L (3.5-5.1); Sodium 140 mmol/L (136-145); Total Protein 7.5 g/dL (6.4-8.2)
== END 2022-07-08 17:22 | disposition home or self-care (01) ==
LOC: LBN 17:21
PROVIDERS: PCP Nurse Practitioner Family; Visit Provider Physician Assistant
DX: R10.11 Right upper quadrant pain (principal)
CPT/HCPCS: 80053; 83690

== ENCOUNTER 2022-07-09 13:37 | Outpatient (CLI) | payer BC, SELFPAY ==
[2022-07-09 09:50] LABS: Abs Immature Grans 0.02 10^3/uL (0.0-0.06); Absolute Basophil Count 0.03 10^3/uL (0.0-0.2); Absolute Eosinophil Count 0.07 10^3/uL (0.0-0.7); Absolute Lymphocyte Count 2.14 10^3/uL (1.2-3.4); Absolute Monocyte Count 0.47 10^3/uL (0.1-0.8); Absolute Neutrophil Count 4.66 10^3/uL (1.2-6.7); Basophils % 0.4; Eosinophils % 0.9; HCT 43.7 % (36.0-46.0); Immature Grans % 0.3; MCH 28.9 pg (27.0-33.0); MCV 90 fL (80-95); Monocytes % 6.4; Platelet Count 356 10^3/uL (130-400); RBC 4.84 10^6/uL (3.93-5.22); RDW 12.5 % (11.7-14.6); RDW-SD 41.1 fL; WBC 7.39 10^3/uL (4.4-10.8)
[2022-07-09 10:22] LABS: Calculated LDL 55 mg/dL (<100); Cholesterol 144 mg/dL (<200); HDL Cholesterol 48 mg/dL (40-60); Triglyceride 206 mg/dL (<150)
== END 2022-07-09 13:38 | disposition home or self-care (01) ==
LOC: LBO 13:37
PROVIDERS: Physician Assistant; PCP Nurse Practitioner Family; Visit Provider Nurse Practitioner Family
DX: R10.11 Right upper quadrant pain (principal); E78.5 Hyperlipidemia, unspecified
CPT/HCPCS: 36415; 80061; 85025

== ENCOUNTER 2022-07-12 00:58 | Outpatient (CLI) | payer BC, SELFPAY ==
--- NOTE | 2022-07-12 10:00 | DI.MRI_ITS ---
Exam(s) MR ABDOMEN WO EXAM: MR ABDOMEN WO CLINICAL HISTORY: r/o choledocholithiasis,ruq abd pain, r10.11. TECHNIQUE: Multiplanar multisequence MRI was performed. COMPARISON: No exams were available for comparison FINDINGS: MR examination of the abdomen was performed utilizing pancreatic/MRCP protocol. Liver is unremarkable in appearance except for incidental tiny apparent right and left hepatic lobe c ysts. Spleen appears normal. Pancreas shows normal signal except for a 6 x 7 millimeter in diameter simple cyst of the pancreatic head. Pancreatic duct is nondilated. Adrenals are unremarkable in appearance. Kidneys appear normal except for incidental left parapelvic cyst and right renal cortical cysts. No adenopathy. Normal diameter of abdominal aorta. Prior cholecystectomy noted. Intrahepatic and extrahepatic biliary ducts show normal diameter. There is no evidence of choledocho lithiasis by MRCP criteria. IMPRESSION: No evidence of biliary dilatation or obstruction, no evidence of choledocholithiasis. Incidental 7 millimeter simple cyst of the pancreatic head. Follow-up MRI recommended in 12 months t o document stability. DATA REPOSITORY:
== END 2022-07-12 01:18 ==
LOC: DI 00:58
PROVIDERS: PCP Nurse Practitioner Family; Visit Provider Nurse Practitioner Family
DX: K80.50 Calculus of bile duct without cholangitis or cholecystitis without obstruction (principal); K86.2 Cyst of pancreas
CPT/HCPCS: 74181

== ENCOUNTER 2022-12-06 20:19 | Emergency (ER) | payer BC, SELFPAY ==
[2022-12-06 20:22] VITALS: BP 163/90; PULSE 107; RESP 18; TEMP 36.5; O2SAT 96
--- NOTE | 2022-12-06 20:30 | ED.GENADUL_ITS ---
Discharge Plan Disposition Patient Disposition: Home Condition: Stable Discharge Details Clinical Impression: Head injury, closed, with concussion Primary Care Provider: Alan Medina ED Provider: Tylor Duke Meds and New Rx's Prescriptions: New ondansetron 4 mg tablet,disintegrating 4 mg PO Q6H PRNQty: 20 0RF Continued atorvastatin 10 mg tablet 10 mg PO QHS Qty: 90 3RF Discharge Instructions Instructions: Concussion (ED), Head Injury (ED) Additional Instructions: You were seen in the ED after a fall with head injury. CT scan shows no hemorrhage or fracture. Your symptoms that you are experiencing are consistent with significant concussion. Prescription for ondansetron has been sent to pharmacy to help control any nausea you may have. You may use acetaminophen or ibuprofen to help with headaches. You should rest completely this weekend and follow-up with primary care next week. Return to ED for severe worsening headache, neurologic changes, lethargy, persistent vomiting, other concerns. Medical Decision Making Patient presenting to ED status post slip and fall with strike to the back of her head. She is having short-term memory problems, confusion, nausea but is nonfocal neurologically. Cervical spine is cleared clinically. No other signs of trauma or tenderness. CT head ordered. Ondansetron ODT given for nausea. Tylenol given for headache. CT head is negative for fracture or hemorrhage. Patient with concussion and dis cussed management of same with patient and . Patient to stay home and rest this weekend, avoid TV, reading, screen time. Prescription for ondansetron ODT sent to pharmacy. She may continue use of acetaminophen or ibuprofen for headache. Follow-up with primary care this week. Return precautions provided. HPI General Mode of arrival: ambulatory . Date/Time Provider Initiated Documentation: 12/06/22 20:30 . Limitations to Documentation: no limitations . Information obtained by: patient and family . HPI Narrative: Patient presents to ED with her status post slip and fall outside. Struck the back of her head. Does not think she had loss of consciousness and was right there but in front of her. If she had loss of consciousness it was extremely brief. However she complains of headache and is amnestic of short-term events. She has nausea but no vomiting. She has no complaint of neck or back pain. She has no numbness, weakness. Related Data Home Medications Medication Instructions Recorded Confirmed atorvastatin 10 mg tablet 10 mg PO QHS #90 tabs 12/28/21 12/06/22 ondansetron 4 mg disintegrating 4 mg PO Q6H PRN #20 tabs 12/06/22 tablet Previous Rx's Medication Instructions Recorded atorvastatin 10 mg tablet 10 mg PO QHS #90 tabs 12/28/21 ondansetron 4 mg disintegrating 4 mg PO Q6H PRN #20 tabs 12/06/22 tablet Allergies Allergy/AdvReac Type Severity Reaction Status Date / Time adhesive tape Allergy Intermediate Skin Rash Unverified 07/08/22 16:21 Penicillins Allergy Intermediate RASH; HIVES Verified 07/08/22 16:21 Latex, Natural Rubber Allergy Unknown Topical Verified 07/08/22 16:21 Irritation General Stated Complaint: HeadInjury VAISHNAVI: 3 Review of Systems Narrative: Per HPI PFSH All Active Problems (Updated 12/06/22 @ 22:02 by Tylor Duke MD) Head injury, closed, with concussion (Acute) Foreign body of knee (Acute) Derangement of medial meniscus of right knee due to old injury (Acute) Chondromalacia, right knee (Acute) Obesity (BMI 35.0-39.9 without comorbidity) (Acute) Prediabetes (Acute) Depressive disorder (Acute) Anxiety (Chronic) Varicose veins of lower extremity (Acute) Seasonal allergic rhinitis (Acute) Migraine (Acute) Ganglion cyst (Acute 08/22/17) Medical History Anxiety Depression Hyperlipemia Migraine Obesity Other ectopic without intrauterine Seasonal allergies Surgical History History of bilateral ligation of fallopian tubes History of vein stripping Repair, ACL 08/17/14 [facility] Status post appendectomy Status post arthroscopy of right knee (08/17/14) Most recent: 11/30/2021 Status post cholecystectomy Family History Sister Essential hypertension Depression Hyperlipidemia Sister Diabetes Depression Hyperlipidemia Mother Diabetes Essential hypertension Stroke Father Personal history of malignant neoplasm LUNG Grandfather Personal history of malignant neoplasm Sister Diabetes Depression Hyperlipidemia Sister Substance abuse Sister Substance abuse Depression Brother Diabetes Heart disease Hyperlipidemia Son Alcohol abuse Depression Son Alcohol abuse Daughter No problems noted. Sister Depression Hyperlipidemia Other Liver damage Social History Smoking/Tobacco Use Status: Never Second Hand Exposure: Yes Smoking risk assessment performed?: Yes Alcohol Intake: current Alcohol Intake frequency: holidays/special occasions only Household members: spouse Housing: house Communication Needs: None Do you need help understanding health information?: Never current occupation: SELF EMPLOYED Pets and animals: Yes Pets and animals: cat(s), dog(s) and horse(s) Sexually active: Yes Do you think of yourself as: straight/heterosexual Current gender identity: female What is your relationship status?: How often do you talk on the phone with friends or family?: three or more times per week How often do you get together with friends or relatives?: three or more times per week How often do you attend alevism or uatsdin services?: 1-3 times per year Do you belong to any clubs or organized social groups?: no Panel score (0-1 are the most socially isolated patients): 2 What type of physical activity do you participate in: walking Duration: 30-45 minutes/day Frequency: 5-6 times per week Apple/Catholic: Baptism Special apple needs: No Seatbelt use: always Helmet use: Yes Helmet use: always Drive intox or ride w/intox snaker tractor driver: No Do you feel safe at home: Yes Do you feel safe in your relationship?: Yes Female Reproductive History Menstrual Menopause type: natural Date of menopause: 10/13/19 History History 4 Para 3 Hx # Term Pregnancies Multiple births 0 Hx # Pregnancies Ectopic pregnancies 1 AB induced Hx Number of Living Children 3 AB spontaneous Past Pregnancies Del. Date GA/Weeks # Preg Succ Route Wgt Sex Labor Lgth Anesth esia Location Prov Complic 06/21/82 40 No vaginal Female 01/02/84 40 No vaginal Male 05/20/85 40 No vaginal Male Exam Narrative Exam Narrative: Const: WDWN female in NAD. HEENT: NC/AT. Normal facial exam. Eyes: Normal conjunctiva and sclera. PERRL and EOMI. Neck: Supple. Trachea midline. No posterior midline cervical spine tenderness. Lungs: Normal respiratory effort. Lungs are clear. Cor: RRR without murmur/gallop GI: Soft. NT/ND. Back: No TLS spine tenderness. Neuro: A+O x 2. Normal speech, gait. Cranial nerves II - XII grossly intact. No gross motor or sensory deficit. Ext: No C/C/E. Skin: Warm and dry without laceration. Course Vital Signs Vital signs: Vital Signs Temperature 97.7 F 12/06/22 20:22 Pulse 107 H 12/06/22 20:22 Respiratory Rate 18 12/06/22 20:22 Blood Pressure 163/90 H 12/06/22 20:22 Pulse Oximetry 96 12/06/22 20:22 Temperature 97.7 F 12/06/22 20:22 Pulse 107 H 12/06/22 20:22 Respiratory Rate 18 12/06/22 20:22 Blood Pressure 163/90 H 12/06/22 20:22 Blood Pressure Position Sitting 12/06/22 20:22 Pulse Oximetry 96 12/06/22 20:22 Oxygen Delivery Method Room Air 12/06/22 20:22 Oxygen Flow Rate 0 12/06/22 20:22 Pain Level 4 12/06/22 20:22
--- NOTE | 2022-12-06 20:45 | DI.CT_ITS ---
Exam(s) CT HEAD WO EXAM: CT HEAD WO CLINICAL HISTORY: trauma. TECHNIQUE: Imaging Protocol: Axial computed tomography images with coronal and sagittal reformatted images were created and reviewed COMPARISON: No exams were available for comparison FINDINGS: Ventricles and Extra axial spaces: Normal in size and morphology for the patient's age. Hemorrhage: None. Cerebral parenchyma: Normal. Midline shift: None. Brainstem/Cerebellum: Normal. Calvarium: Normal. Visualized Paranasal sinuses/Mastoids: Clear. Soft Tissues: Unremarkable. IMPRESSION: No acute intracranial process. RADIATION DOSE DELIVERED: 1,519.34mGy.cm Total DLP DATA REPOSITORY: All CT scans at this facility are submitted to the National Radiology Data Registry (NRDR) Dose Index Registry (DIR) with the [employer] (ACR). RADIATION OPTIMIZATION: All CT scans at this facility use at least one of these dose optimization te chniques: automated exposure control; mA and/or kV adjustment per patient size (includes targeted exa ms where dose is matched to clinical indication); or iterative reconstruction.
[2022-12-06] MEDS: Ondansetron O.D.T. 4 MG TABEF PO (21:45)
[2022-12-06 21:54] VITALS: BP 117/66; PULSE 95; RESP 16; O2SAT 96
--- NOTE | 2022-12-06 21:54 | DI.VRAD_ITS ---
PROCEDURE INFORMATION: Exam: CT Head Without Contrast Exam date and time: 12/06/2022 9:33 PM Age: 57 years old Clinical indication: Injury or trauma; Other: Fall, hit head; Injury date: 12/06/22 TECHNIQUE: Imaging protocol: Computed tomography of the head without contrast. COMPARISON: No relevant prior studies available. FINDINGS: Brain: No edema or hemorrhage. Cerebral ventricles: No ventriculomegaly. Paranasal sinuses: No acute sinusitis. Mastoid air cells: No mastoid effusion. Bones/joints: No acute fracture. Soft tissues: No suspicious lesions. IMPRESSION: No acute intracranial findings. Dictated and Authenticated by: Ami Nichole MD. Ordering:OSMIN Snider MD
== END 2022-12-06 22:45 | disposition home or self-care (01) ==
PROVIDERS: Emergency Provider Emergency Medicine; PCP Nurse Practitioner Family
DX: S06.0X0A Concussion without loss of consciousness, initial encounter (principal); R40.2412 Glasgow coma scale score 13-15, at arrival to emergency department; S09.8XXA Other specified injuries of head, initial encounter; W00.0XXA Fall on same level due to ice and snow, initial encounter
CPT/HCPCS: 99284; 70450

== ENCOUNTER 2023-01-24 00:18 | Outpatient (CLI) | payer BC, SELFPAY ==
--- NOTE | 2023-01-24 08:04 | DI.MAMMO_ITS ---
Exam(s) MAMMO SCREENING EXAM: MAMMO SCREENING CLINICAL HISTORY: screening,z12.39 TECHNIQUE: Mammograms were interpreted according to the usual protocol including computer analysis w [employer] CAD system, tomosynthesis and C-view imaging. COMPARISON: 2015 through 2020 FINDINGS: The breasts are composed of scattered fibroglandular densities, Breast Density category B. No suspicious masses or suspicious microcalcifications are seen. Decrease in prominence of previousl y noted bilateral nodules. No skin thickening or abnormal axillary lymph nodes are seen. There has been no significant change from prior exams. IMPRESSION: BI-RADS Cat 2 - Benign Findings Yearly screening mammography is recommended. Breast Density - Category B, scattered fibroglandular densities. A negative radiographic report should not delay biopsy if a dominant or clinically suspicious mass is present. Up to ten percent of cancers are not identified on mammography. A negative report may reinforce clinical impression. Adenosis and dense breasts may obscure an underlying neoplasm. False positive reports average 6 to 10%. Patient will receive a letter notifying them of these results.
== END 2023-01-24 00:38 ==
LOC: DI 00:20
PROVIDERS: PCP Nurse Practitioner Family; Visit Provider Nurse Practitioner Family
DX: Z12.31 Encounter for screening mammogram for malignant neoplasm of breast (principal)
CPT/HCPCS: 77063; 77067

== ENCOUNTER 2023-04-24 09:01 | Outpatient (REF) | payer BC, SELFPAY ==
[2023-04-28 14:13] LABS: Helicobacter pylori Ag, Feces Negative (Negative)
== END 2023-04-24 09:02 | disposition home or self-care (01) ==
LOC: LBN 09:01
PROVIDERS: PCP Nurse Practitioner Family; Visit Provider Nurse Practitioner Family
DX: A04.8 Other specified bacterial intestinal infections (principal)
CPT/HCPCS: 87338

== ENCOUNTER → 2023-07-11 21:03 | Outpatient (CLI) | payer BC, SELFPAY ==
--- NOTE | 2023-07-11 12:00 | DI.US_ITS ---
Exam(s) US LOWER EXTREMITY VENOUS RT EXAM: US LOWER EXTREMITY VENOUS RT CLINICAL HISTORY: evaluate DVT, rt knee pain, M25.561 TECHNIQUE: Right lower extremity venous ultrasound performed using grayscale, color-flow, and spectr al Doppler analysis. COMPARISON: US US LOWER EXTREMITY VENOUS RT from 03/19/2022 FINDINGS: The right common femoral, femoral and popliteal veins demonstrate normal compressibility, augmentatio n, and color Doppler. The posterior tibial and peroneal veins are patent. The saphenofemoral junctio n is unremarkable. There is no evidence of a Neely cyst. The soft tissues are unremarkable. IMPRESSION: No evidence of a right lower extremity DVT. DATA REPOSITORY:
--- NOTE | 2023-07-11 12:32 | DI.RAD_ITS ---
Exam(s) XR KNEE RT 4V+ EXAM: XR KNEE RT 4V+ CLINICAL HISTORY: right knee pain. TECHNIQUE: 2D digital imaging was performed of the right knee. Four views obtained. Merchant, AP, la teral and PA tunnel views were obtained. COMPARISON: CR RIGHT KNEE 3 VIEWS from 07/24/2014 CR XR KNEE RT 4V AP,LAT,JAYMIE,PAT from 11/01/2021 FINDINGS: BONES: No acute fracture is present. No bony destructive lesion is seen. There is an enthesophyte at the superior patella. There are findings of a prior ACL repair. JOINTS: The knee is normally aligned. There is a moderate joint effusion. There are small osteophyte s seen at the femoral tibial joint. Mild narrowing of the medial femoral tibial joint is noted. SOFT TISSUE: Normal. IMPRESSION: 1. Mild degenerative changes of the right knee. 2. Prior right ACL repair. 3. Moderate joint effusion. DATA REPOSITORY: RADIATION DOSE DELIVERED:
== END ==
PROVIDERS: PCP Nurse Practitioner Family; Visit Provider Nurse Practitioner Family
DX: M17.11 Unilateral primary osteoarthritis, right knee (principal); M25.461 Effusion, right knee
CPT/HCPCS: 73564; 93971

== ENCOUNTER 2023-11-10 03:56 | Outpatient (CLI) | payer BC, SELFPAY ==
[2023-11-10 14:27] LABS: HCT 44.5 % (36.0-46.0); HGB 14.3 g/dL (11.2-15.7); MCH 29.2 pg (27.0-33.0); MCHC 32.1 % (32.0-36.0); MCV 91 fL (80-95); MPV 8.8 fL (8.0-11.0); Platelet Count 354 10^3/uL (130-400); RDW 12.5 % (11.7-14.6); RDW-SD 41.2 fL; WBC 10.49 10^3/uL (4.4-10.8)
[2023-11-10 15:29] LABS: Anion Gap 10.1 mmol/L (3-11); BUN 16 mg/dL (7-18); CO2 28.9 mmol/L (21.0-32.0); CREATININE 0.9 mg/dL (0.55-1.02); Chloride 104 mmol/L (98-107); Estimated GFR 73.64 (mL/min/1.73m2); Glucose 112 mg/dL (74-106); Potassium 4.1 mmol/L (3.5-5.1); Sodium 143 mmol/L (136-145)
== END 2023-11-10 03:57 | disposition home or self-care (01) ==
LOC: LBO 03:56
PROVIDERS: PCP Nurse Practitioner Family; Visit Provider Student in an Organized Health Care Education/Training Program
DX: M25.561 Pain in right knee (principal); M17.11 Unilateral primary osteoarthritis, right knee; Z01.818 Encounter for other preprocedural examination; Z01.812 Encounter for preprocedural laboratory examination
CPT/HCPCS: 36415; 80048; 85027

== ENCOUNTER 2023-11-10 13:17 | Outpatient (CLI) | payer BC, SELFPAY ==
--- NOTE | 2023-11-10 13:00 | DI.RAD_ITS ---
Exam(s) XR STANDING ALIGNMENT XR KNEE RT 1V EXAM: XR STANDING ALIGNMENT and XR knee RT 1 V CLINICAL HISTORY: PRE OP RIGHT TKR. TECHNIQUE: 2D digital imaging was performed. Five images were obtained. COMPARISON: MR MR LOWER JOINT RT WO from 11/07/2021 CR XR KNEE RT 4V+ from 07/11/2023 FINDINGS: BONES: The hips are well maintained. There is an enthesophyte at the anterior patella. There are fi ndings of a prior right ACL repair. There is a small right knee joint effusion. There osteophytes a t the posterior patella and medial femoral tibial joint. There is mild narrowing of the medial femor al tibial joint. The left knee is unremarkable. The ankles are well maintained.There is no signific ant leg length discrepancy. SOFT TISSUE: Normal. IMPRESSION: Degenerative changes seen in the right knee. DATA REPOSITORY: RADIATION DOSE DELIVERED:
== END 2023-11-10 13:18 | disposition home or self-care (01) ==
LOC: DIORS 13:18
PROVIDERS: PCP Nurse Practitioner Family; Visit Provider Physician Assistant
DX: M17.11 Unilateral primary osteoarthritis, right knee (principal); Z01.818 Encounter for other preprocedural examination
CPT/HCPCS: 73560; 77073

== ENCOUNTER 2023-11-18 07:10 | Day surgery (SDC) | payer BC, SELFPAY ==
[2023-11-18] VITALS (12 sets, daily range): BP systolic 112–166; BP diastolic 65–94; PULSE 77–94; RESP 16–22; TEMP 36.4–37.1; O2SAT 92–96; BMI 39.8
--- NOTE | 2023-11-18 07:29 | W.PM.DSUDISC ---
Date of service: 11/18/23 Time of Service: 07:33 Discharge Plan Disposition Patient Disposition: Home Condition: Good Discharge Details Reason For Visit: Right knee DJD Attending Provider: Dayday Penn Primary Care Provider: Alan Medina Home Meds and New Rx's Prescriptions: New acetaminophen 500 mg tablet 1,000 mg PO Q8H PRN Qty: 90 0RF Rx Instructions: Take two tablets up to every 8 hours as needed for pain aspirin 81 mg tablet,delayed release (DR/EC) 81 mg PO BID 30 Days Qty: 60 0RF celecoxib [Celebrex] 200 mg capsule 200 mg PO BID PRNQty: 60 0RF Rx Instructions: Take one tablet twice daily for pain and inflammation docusate sodium [Colace] 100 mg capsule 100 mg PO BID Qty: 30 0RF pantoprazole 40 mg tablet,delayed release (DR/EC) 40 mg PO DAILY 14 Days Qty: 14 0RF dexamethasone 4 mg tablet 4 mg PO DAILY Qty: 2 0RF Rx Instructions: Take one tablet once daily for two days gabapentin 300 mg capsule 300 mg PO QHS Qty: 14 0RF Rx Instructions: Take one tablet at bedtime oxycodone 5 mg tablet 5 mg PO Q4H PRNQty: 18 0RF Rx Instructions: Take one tablet up to every 4 hours as needed for severe postoperative pain Continued atorvastatin 10 mg tablet 10 mg PO QHS Qty: 90 3RF Discharge Instructions Additional Instructions: Total Knee Discharge Instructions Activity: The most important activity is to walk and to work on gentle motion (both flexion and extension). You should try to take short walks a few times a day. It is important that when resting you work on keeping the knee straight. Avoid putting a pillow behind the knee as this will encourage flexion. Work on range of motion exercises as provided by Physical Therapy. - Start outpatient physical therapy within 2 weeks. - You should wear the FILI hose on both legs for 2 weeks. You may remove these at night. You may also use any compression sock in place of the FILI hose. - Utilize [employer] to review exercises, see videos on exercises and obtain basic information pertaining to your surgery and your recovery. Dressing: Remove the Jesse wrap by 2 days after your surgery and put on the FILI stocking given to you from the hospital. Keep the surgical dressing (underneath the JESSE wrap) in place for at least one week. After the first week it may be removed and replaced with light gauze and tape or nothing. The wound and dressing may get wet after 3 days but avoid soaking the dressing or otherwise it will need to be changed. Many people prefer covering the dressing with cling wrap (saran wrap) to minimize it from getting soaked. If it gets wet, just pat dry. If it starts to peel off then it will need to be changed. Medications: - You should take Tylenol and anti-inflammatory Celebrex as your primary pain control medications. If the Celebrex is too expensive or not covered, please call the office for another alternative (Advil/Ibuprofen or Naproxen/Aleve) - You have been prescribed a stronger pain medication Oxycodone for breakthrough pain, take as needed as prescribed. - You have also been prescribed a stomach acid reduction agent Pantoprozole to help reduce stomach acid and reflux. - You have been prescribed Gabapentin to take at night for restlessness and nerve pain. - You will be taking Aspirin 81mg twice a day for DVT prevention unless instructed otherwise. - You have also been prescribed Decadron to take to control post-operative nausea and pain. You will start this tomorrow. - If you have constipation you should take Colace (which has been prescribed) or Miralax (which is available [id number]). It takes most people 3-4 days to have a bowel movement. Follow-up: 2 weeks If you have any acute concerns or questions, please do not hesitate to contact the office at [phone]. You may contact Dr. Penn with any questions after hours through the hospital at [phone] or on his cell phone at [phone]. Referrals: Dayday Penn MD [ [facility] STAFF PHYSICIAN] - Equipment/Supplies: Walker Activity:: Elevate Remove Dressings/Wound Care:: Do Not Remove Shower/Bathe:: 72 hours and Cover Diet:: As Tolerated Discharge Orders Discharge Orders: Discharge Order (Routine); Ordered 11/18/23 Ordered By: Manuela Jung
[2023-11-18] MEDS: Acetaminophen 500 MG TAB 1000 MG PO (07:44)
[2023-11-18] MEDS: Gabapentin 300 MG CAP PO (07:45)
[2023-11-18] MEDS: Celecoxib 200 MG CAP 400 MG PO (07:45)
--- NOTE | 2023-11-18 07:58 | W.ANESPRE ---
General Info Date of Service Date Performed: 11/18/23 Height: 5 ft 6 in Weight: 112 kg Body Mass Index (BMI): 39.8 Surgical Procedure: Operation Date: 11/18/23 09:25 Proposed Procedure Side Surgeon p Knee Total Arthroplasty, Cementless CR Right Dayday Penn MD Meds Allergies and Home Medications Allergies Allergy/AdvReac Type Severity Reaction Status Date / Time adhesive tape Allergy Intermediate Skin Rash Unverified 11/18/23 07:40 Penicillins Allergy Intermediate RASH; HIVES Verified 11/18/23 07:40 Latex, Natural Rubber Allergy Unknown Topical Verified 11/18/23 07:40 Irritation Home Medication Medication Instructions Recorded atorvastatin 10 mg tablet 10 mg PO QHS #90 tabs 03/20/23 acetaminophen 500 mg tablet 1,000 mg (2 x 500 mg) PO Q8H PRN 11/18/23 pain #90 tabs aspirin 81 mg tablet,delayed 81 mg PO BID 30 days #60 tabs 11/18/23 release celecoxib 200 mg capsule (Celebrex) 200 mg PO BID PRN #60 caps 11/18/23 dexamethasone 4 mg tablet 4 mg PO DAILY #2 tabs 11/18/23 docusate sodium 100 mg capsule 100 mg PO BID #30 caps 11/18/23 (Colace) gabapentin 300 mg capsule 300 mg PO QHS #14 caps 11/18/23 oxycodone 5 mg tablet 5 mg PO Q4H PRN #18 tabs 11/18/23 pantoprazole 40 mg tablet,delayed 40 mg PO DAILY 14 days #14 tabs 11/18/23 release Current Visit Medications: Current Medications Generic Name Dose Route Start Last Admin Trade Name Freq PRN Reason Stop Dose Admin Acetaminophen 1,000 mg 11/18/23 06:00 11/18/23 07:44 Acetaminophen 500 Mg Tab PO 11/18/23 18:00 1,000 mg PREOP CORINE Administration Celecoxib 400 mg 11/18/23 06:00 11/18/23 07:45 Celecoxib 200 Mg Cap PO 11/18/23 18:00 400 mg PREOP CORINE Administration Droperidol 0.625 mg 11/18/23 07:22 Droperidol 5 Mg/2 Ml Vial IVP 12/18/23 07:21 DIRECTED PRN Nausea Ephedrine Sulfate 0 mg 11/18/23 07:22 Ephedrine 25 Mg/5 Ml Syringe IVP 12/18/23 07:21 DIRECTED PRN Fentanyl 0 mcg 11/18/23 07:22 Fentanyl 100 Mcg/2 Ml Vial IVP 12/18/23 07:21 DIRECTED PRN Gabapentin 300 mg 11/18/23 06:00 11/18/23 07:45 Gabapentin 300 Mg Cap PO 11/18/23 18:00 300 mg PREOP CORINE Administration Hydromorphone HCl 0 mg 11/18/23 07:22 Hydromorphone 2 Mg/Ml Syr IVP 12/18/23 07:21 DIRECTED PRN Hydromorphone HCl 0.5 mg 11/18/23 07:27 Hydromorphone 2 Mg/Ml Syr IVP 12/18/23 07:26 Q2H PRN PRN Tranexamic Acid 1,000 mg/ 60 mls @ 360 mls/hr 11/18/23 06:00 Sodium Chloride IVPB 11/18/23 18:00 PREOP CORINE Ringer's Solution 1,000 mls @ 80 mls/hr 11/18/23 06:00 IV 12/17/23 23:59 INFUSION CORINE Cefazolin Sodium 3,000 mg/ 100 mls @ 200 mls/hr 11/18/23 06:00 Sodium Chloride IVPB 11/18/23 16:00 PREOP CORINE Cefazolin Sodium/Dextrose 1 gm in 50 mls @ 100 mls/hr 11/18/23 08:00 Ancef Duplex IVPB 11/19/23 00:29 Q8H CORINE IV Miscellaneous Supplies 1 each 11/18/23 06:00 Iv Access IV 12/17/23 23:59 DIRECTED CORINE Naloxone HCl 0 mg 11/18/23 07:22 Naloxone 0.4 Mg/Ml Vial IVP 12/18/23 07:21 PRN PRN Oxycodone HCl 0 mg 11/18/23 07:27 Oxycodone 5 Mg Tab PO 12/18/23 07:26 Q3H PRN PRN Pain Sodium Chloride 0 ml 11/18/23 06:00 Normal Saline Flush 10 Ml Syr IV 12/17/23 23:59 PRN PRN Sodium Chloride 0 ml 11/18/23 06:00 Normal Saline 10 Ml Vial IJ 12/17/23 23:59 DIRECTED PRN Sterile Water 0 ml 11/18/23 06:00 Water,Injection,Sterile 10 Ml Vial IJ 12/17/23 23:59 DIRECTED PRN PFSH Active Problems Active Problems: Problem Status Onset Code Degenerative joint disease of right knee M17.11 Helicobacter pylori (H. pylori) A04.8 Foot pain M79.673 Postconcussion syndrome F07.81 Foreign body of knee S80.259A Derangement of medial meniscus of right knee due to old injury M23.203 Chondromalacia, right knee M94.261 Obesity (BMI 35.0-39.9 without comorbidity) E66.9 Prediabetes R73.03 Depressive disorder F32.9 Anxiety F41.9 Varicose veins of lower extremity I83.90 Seasonal allergic rhinitis J30.2 Migraine G43.909 Ganglion cyst 08/22/17 M67.40 Medical History Medical History Hyperlipemia Other ectopic without intrauterine Obesity Seasonal allergies Depression Anxiety Migraine Surgical History Surgical History Status post arthroscopy of right shoulder Dr. Carranza Status post right foot surgery Has pin in her right foot after horse injury History of bilateral ligation of fallopian tubes History of vein stripping Status post appendectomy Status post arthroscopy of right knee (08/17/14) Most recent: 11/30/2021 Status post cholecystectomy Repair, ACL 08/17/14 [facility] Tobacco Smoking/Tobacco Use Status: Never Passive smoking exposure: Yes Second hand exposure: Yes Alcohol Alcohol Intake: current Alcohol intake frequency: holidays/special occasions only Alcohol type: wine and hard liquor Substance Use Substance use: Occasionally Substance use type: marijuana Details: Edibles, Monthly or less per patient packet Prental History History 4 Para 3 Hx # Term Pregnancies Multiple births 0 Hx # Pregnancies Ectopic pregnancies 1 AB induced Hx Number of Living Children 3 AB spontaneous Past Pregnancies Del. Date GA/Weeks # Preg Succ Route Wgt Sex Labor Lgth Anesthesia Location Prov Complic 06/21/82 40 No vaginal Female 01/02/84 40 No vaginal Male 05/20/85 40 No vaginal Male Vital Signs and Lab Results Vital Signs Most Recent Vital Signs in EMR: Most Recent Vital Signs Temp Pulse Resp BP Pulse Ox 36.6 C 94 H 20 147/94 H 96 11/18/23 07:21 11/18/23 07:21 11/18/23 07:21 11/18/23 07:21 11/18/23 07:21 Lab Results Blood Type / Crossmatch: No Data to Display Complete Blood Count: White Blood Count 10.49 10^3/uL (4.4-10.8) 11/10/23 14:17 Red Blood Count 4.90 10^6/uL (3.93-5.22) 11/10/23 14:17 Hemoglobin 14.3 g/dL (11.2-15.7) 11/10/23 14:17 Hematocrit 44.5 % (36.0-46.0) 11/10/23 14:17 Platelet Count 354 10^3/uL (130-400) 11/10/23 14:17 Complete Metabolic Panel: Sodium 143 mmol/L (136-145) 11/10/23 14:17 Potassium 4.1 mmol/L (3.5-5.1) 11/10/23 14:17 Chloride 104 mmol/L (98-107) 11/10/23 14:17 Carbon Dioxide 28.9 mmol/L (21.0-32.0) 11/10/23 14:17 BUN 16 mg/dL (7-18) 11/10/23 14:17 Creatinine 0.9 mg/dL (0.55-1.02) 11/10/23 14:17 Est GFR (CKD-EPI 2020) 73.64 (mL/min/1.73m2) 11/10/23 14:17 Calcium 10.0 mg/dL (8.5-10.1) 11/10/23 14:17 Glucose 112 mg/dL (74-106) H 11/10/23 14:17 Liver Function Panel: No Data to Display Coagulation Panel: No Data to Display Cardiac Panel: No Data to Display Arterial Blood Gas: No Data to Display Venous Blood Gas: No Data to Display Pancreas Panel: No Data to Display Thyroid Panel: No Data to Display Infectious Disease: No Data to Display Blood Cultures: No Data to Display Toxicology Panel: No Data to Display Imaging and Studies Imaging and Studies Study information below may be from another EMR and interpreted by another provider. Please see original notes in EMR for more complete details. EKG Summary: SR, left atrial enlargement 02/05/19 Anesthesia Assessment and Plan Anesthesia History Personal History: No History of Anesthesia Complications Family History: No Family History of Anesthesia Complications Exercise Tolerance Exercise Tolerance: Metabolic Equivalents>4 Pertinent Negatives Pertinent Negatives: No Symptoms of GERD Cardiac & Pulmonary Exam Cardiac Exam: Normal S1/S2 Heart Sounds Pulmonary Exam: Clear Bilateral Breath Sounds Implantable Cardiac Device Does patient have a Pacemaker or an ICD?: No Airway Exam Known Difficult Airway: No Mallampati Class: 2 Mouth Opening: Normal (> 3cm) Thyromental Distance: Less than 3 cm Neck Range of Motion: Full ROM Neck Circumference: Normal Teeth Condition: Normal Dentition ASA Classification ASA Score: ASA 2 Emergency Case?: No NPO Status NPO Status: NPO Clears >2 hours, Solids >8 hours Anesthesia Plan Resuscitation Status: Full Code Anesthesia Technique: Spinal Anesthesia Airway Planned: Natural Airway Monitors Used: Standard Monitors
[2023-11-18] MEDS: Lactated Ringers 1,000 ML 80 ML IV (08:00)
--- NOTE | 2023-11-18 08:33 | W.ANESNERVE ---
Nerve Block Single Injection Procedure Date and Time Date Performed: 11/18/23 Procedure Start: 08:23 Location Where Procedure Performed Procedure Location: Day Surgery Unit Reason Performed: Postoperative Analgesia Requesting Provider: Dayday Penn Timeout Performed Timeout Performed: Yes Monitoring Used ECG, Blood Pressure, SpO2, ETCO2 and See EMR for corresponding vital signs Sterility Sterility: Hand Hygiene, Surgical Cap, Surgical Mask, Sterile Gloves, Eye Protection and Chlorhexidine Sedation Given During Procedure Sedation Given (Indicate Dose Given): Versed IV Dose:: 4mg IVP Patient Mental Status Patient Mental Status: Sedate with meaningful communication Nerve Block 1st Nerve Block: Laterality: Right Block Type: Adductor Canal Ultrasound Image Saved?: Yes Needle / Catheter Used: 100mm SonoPlex II Local Anesthetic Bolus (Indicate Dose Given): Lidocaine used for local infiltration of skin and Ropivacaine 0.5% Dose:: 0.5%/25cc (125mg) Additives (Indicate Dose Given): Epinephrine to make 1:200,000 (5mcg/ml) Dose:: 125mcg (1:200,000) Ultrasound: Sterile probe cover and gel used Nerve Stimulator: Not Used Paresthesia: None Procedure Tolerated: No Complications and Patient tolerated well Procedure Outcome: Successful Performed By: Jl Omalley
[2023-11-18] MEDS: ceFAZolin 3,000 MG in Normal Saline 100 ML 200 MG IVPB (09:45)
--- NOTE | 2023-11-18 11:07 | W.PM.OP ---
Date of service: 11/18/23 Time of Service: 09:45 Operative Note Operative Note DATE OF PROCEDURE: 11/18/23 PRE-OP DIAGNOSIS: Right Knee Osteoarthritis POST-OP DIAGNOSIS: same PROCEDURE: Right Total Knee Replacement SURGEON: Dayday Penn ENGINEER SYSTEM ADMINISTRATOR: Manuela Jung ANESTHESIA TYPE: Spinal Refer to Anesthesia Record ESTIMATED BLOOD LOSS: 100 PATHOLOGY: none sent TOURNIQUET TIME: 0 COMPLICATIONS: None Patient was transported to: PACU Patient's condition: stable Implants: 1. Depuy Attune Cementless Cruciate Retaining Femoral Component, Size 6 2. Depuy Attune Cementless Fixed Bearing Tibial Component, Size 5 3. Depuy Attune 6x6 CR/FB Poly 4. Depuy Attune Patellar Component, Size 32 Indications: I have seen Elke in clinic for symptoms of knee arthritis, confirmed with radiographic findings. She has exhausted nonoperative methods and was having significant limitations in daily function and desired better function and less pain. I discussed the technical details of a knee replacement. I explained the risks of the procedure to include, but not limited to, bleeding, infection, pain, stiffness, fracture, damage to nerves and vessels, damage to muscles and tendons, loosening, need for repeat procedure, blood clot and cardiopulmonary demise. Despite these risks, Elke elected to proceed. Findings: There was a large trough of full-thickness cartilage loss of the central medial femur along with a central defect of the patella. Procedure Description: Elke was greeted in the preoperative holding area where the correct side was identified and marked. The consent was reviewed with the patient and signed. The history and physical was updated. All questions were answered. Preoperative medications were administered: Acetaminophen 1000mg, Celebrex 400mg, and Gabapentin 300mg. An adductor canal block was then administered by the anesthesia team in the PACU. She was taken back to the operating room. A spinal anesthestic was then administered. The patient was placed into the supine position on the operating room table. Posts were placed for positioning during the procedure. All bony prominences were well padded. Prophylactic antibiotics in the form of Cefazolin were administered. 1g of Tranxemic Acid was given intravenously within 30 minutes of incision. The right leg was then prepped with Chloraprep and draped in a standard fashion with impervious stockinette. A second prep with Chloraprep was performed prior to application of Iodine impregnated skin protection. A timeout to confirm correct identity, side and site, procedure, allergies, anesthesia, and medical concerns was performed. With the knee in some flexion, a midline incision was made overlying the knee. Full thickness skin flaps were raised once the extensor mechanism was encountered. These were raised medially and laterally. Any bleeding was controlled with electrocautery. Once the extensor mechanism was fully exposed, a medial parapatellar arthrotomy was performed in a flexed position. All bleeding from the arthrotomy and the geniculate arteries was coagulated. A medial subperiosteal peel was performed with electrocautery to the midcoronal plane. The fat pad was removed while keeping the patellar tendon protected. The anterior distal femur synovium was removed for later visualization. The ACL and PCL were resected and the anterior horn of the lateral meniscus was transected. The knee was then flexed with the patella everted. Using a step drill, and based on preoperative templating, the femoral canal was entered. This was done with a step drill without any difficulty. The intramedullary distal femoral cut guide was inserted, set to a 5 degree valgus cut and 9mm cut thickness. The distal femoral cut guide was then held in position and pinned. With the soft tissues protected, the distal cut was performed. This was passed over a few times to ensure a planar cut. I then turned attention to the tibia. The extramedullary guide was placed onto the leg. The distal aspect was slid medial to adjust for position of center of ankle and stay in line with shaft of the tibia. Approximately 3-5 degrees of posterior slope was kept in the proximal cutting guide. The center of the guide was aligned with the PCL. The stylus was used to assess cut thickness. The medial side, most involved side, was set for a 6mm cut, corresponding to 9mm laterally. This was then held in position and pinned into place with 2 additional pins and a cross pin for stability. The medial and lateral collateral ligaments were protected and the cut was performed. With this completed, it was assessed and noted to be of appropriate dimensions. The guide was removed. A spacer block was inserted and the knee was brought into extension. The 6mm spacer block provided full extension, without hyperextension and with stability of both the medial and lateral collateral ligaments was assessed. The pins from the femur and the tibia were then removed. The distal femur was then sized. The anterior stylus was placed onto the lateral ridge of the anterior femur. This indicated a size 6 femur. The external rotation of the guide was adjusted to 0 degrees to match the epicondylar axis, perpendicular to Eliu?s line. The 4-in-1 cutting guide was the placed. The posterior medial femur cut was evaluated and appeared of good thickness. The spacer block was inserted underneath the cutting guide and stability was confirmed in 90 degrees of flexion. An shawna wing was used to confirm appropriate position of the anterior cut to avoid notching. This cutting guide was ensured to be flush on the cut surface and then pinned into place with headed pins. While protecting the soft tissues, quad tendon, and collateral ligaments, the anterior and posterior cuts were performed with a saw. The central two pins were removed and the posterior and anterior chamfers were cut next. The notch-cutting guide was placed. This was pinned to lateralize the femoral component as much as possible while keeping it flush on the cut surface. This was then pinned into position. A reciprocating saw was used to make the notch cut. A rasp smoothed the cut surfaces. The medial and lateral menisci were removed. A trial femoral component was then inserted, impacted down to the cut surfaces, and the lug holes were drilled. A provisional trial tibial component was placed and the knee was brought through range of motion. There was noted to be excellent extension and flexion. There was no significant instability. The patella was tracking without thumbs. A size 6mm polyethylene component provided the best range of motion and stability with less than 2mm gapping with medial and lateral stress and full extension without significant hyperextension. The tibial cut surface was fully exposed. The tibia was then sized as a 5. The tibia had been previously marked during trialing to correspond to the center of the tibial component to help with rotation. The trial was aligned to this komal, approximately rotated to the medial 1/3rd of the tibial tubercle. The trial was pinned into place. The tibia was prepared with a reamer and a keel punch and lug holes. The knee was then brought into extension and the patella was measured as 24mm. Using the patellar clamp and cut guide, this was resected to a flat surface with at least 13mm of thickness remaining. The size 32 patella fit the best. This was oriented and then clamped into position. The lugs were drilled. The trial components were removed. The final components were opened on the back table. The periosteal and capsular tissues, especially posteriorly, around the knee were then systematically injected with a periarticular cocktail consisting of 246mg of Ropivacaine, 0.5mg of Epinephrine, 0.08mg of Clonidine, and 30mg of Ketorolac, diluted to 100cc. On the back table, with the implants opened, the cement was mixed. One batch of high viscosity cement was prepared with vacuum assistance. After the cement was ready a small amount was placed on the cut surface of the patella and the patellar button was clamped into position and held. While the cement was hardening, the cementless knee components were placed. Starting with the tibial component, the tibia was subluxed anteriorly and the lug holes of the component were lined up. The tibia was then impacted with an impactor and mallet until the tibial component was in contact with the tibia. The final polyethylene component was inserted. Then, the femoral component was inserted. The lug holes were aligned and the component was impacted into position. The knee was irrigated with Irrisept Chlorhexadine solution. This was allowed to sit in the knee for 3 minutes and then it was irrigated out with saline. After the cement had finally cured, approximately 15min, the clamp was removed from the patella and the knee was taken through range of motion. The patella was tracking with a no-thumbs technique. The capsule was then reapproximated with a No. 1 Vicryl at multiple locations. The capsule was finally closed with a No. 2 Stratafix, barbed suture. The second dosing of 1g TXA was started. Deep tissues were then reapproximated with 0 Vicryl and 2-0 Vicryl. The skin was closed with a running 3-0 Monocryl in a subcuticular fashion. This was reinforced with skin glue. A Mepilex silver dressing was applied along with a [id number] YAEL wrap. A CryoCuff was applied. Elke was transferred to the hospital bed without difficulty an suffering no apparent complication. She has a good prognosis. Physical therapy will start today and without restrictions, weight-bearing as tolerated. Aspirin 81mg BID will be used for DVT prophylaxis.
[2023-11-18] MEDS: Droperidol 5 MG/2 ML VIAL 0.625 MG IVP (12:06)
--- NOTE | 2023-11-18 13:47 | PT.INIE ---
PT Notes Visit Reasons: Right knee DJD Physical Therapy Day Surgery Initial Evaluation Date: 11/18/2023 Referring Doctor: KARUNA Bourne PT Orders: PT CONSULT: S/P Ortho Surgery Precautions: WBAT on the R LE with AD. Patient Profile/Admitting Diagnosis: Sarahy is a 58-year-old female with degenerative joint disease of the right knee and status post right total knee arthroplasty on postoperative day 0. PMHX: Medical History (Updated 11/10/23 @ 12:55 by Manuela Jung) Hyperlipemia Other ectopic without intrauterine Obesity Seasonal allergies Depression Anxiety Migraine Surgical History (Updated 11/10/23 @ 13:24 by Manuela Jung) Status post arthroscopy of right shoulder Dr. Carranza Status post right foot surgery Has pin in her right foot after horse injuryHistory of bilateral ligation of fallopian tubes History of vein stripping Status post appendectomy Status post arthroscopy of right knee (08/17/14) Most recent: 11/30/2021 Status post cholecystectomy Repair, ACL 08/17/14 [facility] Social History/Home Situation: Lives with and in a private home with 3-4 steps to enter with no rails. Independent with all aspects feels prior to surgery without an assistive device although has had difficulty with mobility ADL performance due to worsening arthritis. Equipment Owned/DME: Walking stick Subjective: Reported some achiness in the back of her right knee at 3/10. Denied headache, chest pain, and lightheadedness throughout session. Objective: General Observation: Resting in bed. Jesse wraps to right LE. Cryocuff to right knee. TEDS to L leg. Mental Status: A and O x 4 Pain: As above ROM: Right Lower Extremity: Hip flexion WFL. Hip abduction WFL. Knee flexion 30 degrees to 90 degrees ACTIVELY. Knee extension -30 degrees ankle dorsiflexion WFL. Ankle plantarflexion WFL. Left Lower Extremity: Hip flexion WFL. Hip abduction WFL. Knee flexion WFL. Ankle dorsiflexion WFL. Ankle plantarflexion WFL. Strength: Right Lower Extremity: Hip flexors 4/5. Hip abductors 4/5. Knee flexors 3-/5. Knee extensors 3-/5. Ankle dorsiflexors 5/5. Ankle plantarflexors 5/5. Left Lower Extremity:Hip flexors 5/5. Hip abductors 5/5. Knee flexors 5/5. Knee extensors 5/5. Ankle dorsiflexors 5/5. Ankle plantarflexors 5/5. Sensation: Intact as to pain and light pressure in B LE Bed Mobility/Transfers: Minimal cueing provided for use of B hands as needed for support, movement sequence, AD management, and posture to reduce fall risk and minimize pain report. Supine to sit standby assist Sit to stand contact-guard assist with FWW Stand to sit stand by assist Bed to chair stand by assist Gait: Facilitated safe and correct performance of level surface ambulation using front wheeled walker covering a distance of 150 feet with step to gait pattern and standby assist PT requiring minimal verbal cueing for increased flexion in the right knee during swing phase of gait, AD management, and posture to reduce fall risk and minimize pain report. Stairs: Guided patient with safe and correct negotiation 3 x 4 inch steps and 2 x 6 inch steps while holding onto 1 rail and using a single-point cane with the other hand requiring contact-guard assist and minimal verbal cueing for AD management, movement sequence, increased knee flexion on the right during each ascent, and for posture in order to reduce fall risk and minimize pain report. Balance: Static Sitting: Normal Dynamic Sitting: Normal Static Standing: Fair Dynamic Standing: Fair Special Tests: Mobility Limitations Standardized Measure [facility] AM-PAC 6 clicks Basic Mobility Inpatient Short Form: Raw Score: 22 CMS Score: 21% deficit Informed Consent/Education: Patient instructed in purpose of PT consult. Packet containing TKA exercise protocol has been given to patient. Education and training on initial set of exercises that can be done at home have been completed with patient. Trained patient with correct performance of exercises below to maximize motor control, joint flexibility, soft tissue extensibility of the R knee musculature: Access Code: [email or web address] URL: [email or web address] Date: 11/18/2023 Prepared by: Vandana Cardona Exercises - Supine Quad Set - 1 x daily - 7 x weekly - 1 sets - 10 reps - 5 hold - Supine Heel Slide - 1 x daily - 7 x weekly - 1 sets - 10 reps - 5 hold - Supine Ankle Pumps - 1 x daily - 7 x weekly - 1 sets - 10 reps - 5 hold - Small Range Straight Leg Raise - 1 x daily - 7 x weekly - 1 sets - 10 reps - 5 hold - Seated March - 1 x daily - 7 x weekly - 1 sets - 10 reps - 5 hold Assessment: Patient requires the use of a front wheeled walker for all mobility ADL performance to maximize independence and reduce fall risk at home. Patient presents with clinical signs and symptoms consistent with current/admitting diagnoses that have resulted to mobility limitations, gait instability, generalized weakness, and impairment of motor control as demonstrated by the following impairment level findings: 1. Decreased strength to R knee major muscle groups 2. Impaired standing balance 3. Limitation of joint range of motion in R knee Impairments are contributing to the following functional limitations: 1. Inability to safely ambulate without assistive device 2. Increase completion time for mobility ADL performance 3. Increased fall risk Patient is assessed as a 42399 moderate complexity based on the following: History: 58-year-old female with impairment level findings, functional limitations, and past medical history as indicated above Examination: Demonstrable impairment in strength, balance, and mobility level with underlying impairments and functional limitations as documented above Presentation: Evolving Decision Makin moderate complexity Goals: N/A. PT evaluation and 1-2 treatment sessions only for functional mobility training using recommended AD and for HEP instruction. Plan of Care/Treatment Plan: N/A. PT evaluation and 1-2 treatment session only for functional mobility training using recommended AD and for HEP instruction. DISCHARGE RECOMMENDATIONS: Home when medically cleared by orthopedic surgeon. Recommend outpatient PT services in order to optimize functional mobility outcomes and facilitate return to independent community ambulation without an assistive device. TREATMENT CODE/TIME: 9716 2 x 20 minutes for 1 unit, 9753 0 x 13 minutes for 1 unit (13:47-14:25) Thank you for the opportunity to participate in the care of this patient. Please sign an return this page within 30 days if you agree with the above POC. Thank you! Physician Signature Date [facility] Vandana Cardona PT, DPT, CLT [facility], [place]
--- NOTE | 2023-11-18 14:20 | W.ANESPOSTOP ---
Postoperative Evaluation Date, Time and Location Date Performed: 11/18/23 Time Performed: 14:20 Patient Location: Day Surgery Unit Vital Signs Most Recent Imported Vital Signs: Most Recent Vital Signs Temp Pulse Resp BP Pulse Ox 37 C 92 H 16 144/85 H 95 11/18/23 13:20 11/18/23 13:20 11/18/23 13:20 11/18/23 13:20 11/18/23 13:20 Pain Score Most Recent Pain Score: Most Recent Pain Score Pain Level 0 11/18/23 13:20 Assessment Mental Status: Awake (Alert & Oriented to Patient Baseline) Airway and Respiratory Function: Patent airway with normal (patient baseline) respiratory exam Cardiovascular Function: Hemodynamically Stable Hydration Status: Adequately Hydrated Nausea & Vomiting: No Nausea or Vomiting Pain: Pt. Denies Any Pain Peripheral Nerve Block: Regional nerve block not resolved at time of post operative discharge
== END 2023-11-18 14:40 | disposition home or self-care (01) ==
PROVIDERS: PCP Nurse Practitioner Family; Visit Provider Student in an Organized Health Care Education/Training Program
PROC: (CPT 27447; principal; 2023-11-18 09:15)
DX: M17.11 Unilateral primary osteoarthritis, right knee (principal); M94.261 Chondromalacia, right knee; R73.03 Prediabetes; E66.9 Obesity, unspecified; Z68.39 Body mass index [BMI] 39.0-39.9, adult
CPT/HCPCS: 27447; 76942; 97162; 97530; C1776; J0171; J0690; J1100; J1790; J2001; J2250; J2371; J2401; J2405; J2704

== ENCOUNTER 2023-12-01 15:47 | Outpatient (CLI) | payer BC, SELFPAY ==
--- NOTE | 2023-12-01 13:55 | DI.RAD_ITS ---
Exam(s) XR KNEE RT 1V XR STANDING ALIGNMENT EXAM: XR STANDING ALIGNMENT and XR knee RT 1 V CLINICAL HISTORY: 1ST POST OP R TKA. TECHNIQUE: 2D digital imaging was performed. Five images were obtained. COMPARISON: CR XR KNEE RT 1V from 11/10/2023 CR XR STANDING ALIGNMENT from 11/10/2023 FINDINGS: BONES: The hips are well maintained. The patient is now status post right total knee replacement. T he orthopedic hardware appears in good position. There are findings of a prior ACL repair in the rig ht knee. There is an enthesophyte at the superior patella. There is a small joint effusion. There is also mild persistent soft tissue swelling of the right knee. The left knee is well maintained. T he ankles are well maintained.There is no significant leg length discrepancy. SOFT TISSUE: Normal. IMPRESSION: Status post right TKR. DATA REPOSITORY: RADIATION DOSE DELIVERED:
== END 2023-12-01 15:48 | disposition home or self-care (01) ==
LOC: DIORS 15:51
PROVIDERS: PCP Nurse Practitioner Family; Visit Provider Student in an Organized Health Care Education/Training Program
DX: Z96.651 Presence of right artificial knee joint (principal); Z47.1 Aftercare following joint replacement surgery
CPT/HCPCS: 73560; 77073

== ENCOUNTER 2024-02-11 09:53 | Day surgery (SDC) | payer BC, SELFPAY ==
[2024-02-11] VITALS (7 sets, daily range): BP systolic 130–155; BP diastolic 74–89; PULSE 73–79; RESP 16–21; TEMP 36.2–36.5; O2SAT 96–99; BMI 40.0
--- NOTE | 2024-02-11 07:13 | HPE_ITS ---
Assessment and Plan Assessment and plan (1) Arthrofibrosis of total knee arthroplasty: Status: Acute Assessment and plan: Juno is a 58-year-old female who is status post right knee replacement with arthrofibrosis. To help assist with her range of motion, flexion primarily, I offered manipulation under anesthesia. I once again reviewed this procedure with her. I discussed the risk to include bleeding within the knee joint, infection, pain, stiffness, swelling, fracture, recurrence of symptoms or lack of improvement. Despite these risk, she elects to proceed. History of Present Illness Narrative: Juno is a 58-year-old female who is almost 3 months status post right knee replacement. Unfortunately, she has had difficulties with stiffness about the right knee. She has been diligent with physical therapy but continues to have limitations, particular with flexion. Therefore, I did offer manipulation under anesthesia. She is here today for that procedure. She denies any new medical concerns. No chest pain or shortness of breath. Review of Systems All systems reviewed & are unremarkable except as noted in HPI and below PFSH All Active Problems Arthrofibrosis of total knee arthroplasty (Acute) History of total right knee replacement (Acute 11/18/23) Helicobacter pylori (H. pylori) (Acute) Foot pain (Acute) Postconcussion syndrome (Acute) Foreign body of knee (Acute) Derangement of medial meniscus of right knee due to old injury (Acute) Chondromalacia, right knee (Acute) Obesity (BMI 35.0-39.9 without comorbidity) (Acute) Prediabetes (Acute) Depressive disorder (Acute) Anxiety (Chronic) Varicose veins of lower extremity (Acute) Seasonal allergic rhinitis (Acute) Migraine (Acute) Ganglion cyst (Acute 08/22/17) Medical History Hyperlipemia Other ectopic without intrauterine Obesity Seasonal allergies Depression Anxiety Migraine Surgical History Status post arthroscopy of right shoulder Dr. Carranza Status post right foot surgery Has pin in her right foot after horse injury History of bilateral ligation of fallopian tubes History of vein stripping Status post appendectomy Status post arthroscopy of right knee (08/17/14) Most recent: 11/30/2021 Status post cholecystectomy Repair, ACL 08/17/14 [facility] Family History Sister Essential hypertension Depression Hyperlipidemia Sister Diabetes Depression Hyperlipidemia Mother Diabetes Essential hypertension Stroke Father Personal history of malignant neoplasm LUNG Grandfather Personal history of malignant neoplasm Sister Diabetes Depression Hyperlipidemia Sister Substance abuse Sister Substance abuse Depression Brother Diabetes Heart disease Hyperlipidemia Son Alcohol abuse Depression Son Alcohol abuse Daughter No problems noted. Sister Depression Hyperlipidemia Other Liver damage Social History Smoking/Tobacco Use Status: Never Second Hand Exposure: Yes Smoking risk assessment performed?: Yes Alcohol Intake: current Alcohol Intake frequency: holidays/special occasions only Alcohol type: wine and hard liquor Drug use: Occasionally Substance use type: marijuana Details: Edibles, Monthly or less per patient packet Caregiver/Support person: No Household members: spouse Housing: house Communication Needs: None Do you need help understanding health information?: Never current occupation: SELF EMPLOYED Pets and animals: Yes Pets and animals: cat(s), dog(s) and horse(s) Sexually active: Yes Do you think of yourself as: straight/heterosexual Current gender identity: female What is your relationship status?: How often do you talk on the phone with friends or family?: three or more times per week How often do you get together with friends or relatives?: once per week How often do you attend uatsdin or evangelical services?: 1-3 times per year Do you belong to any clubs or organized social groups?: no Panel score (0-1 are the most socially isolated patients): 2 What type of physical activity do you participate in: walking Duration: 30-45 minutes/day Frequency: daily Apple/Episcopal: No preference Special apple needs: No Seatbelt use: always Helmet use: Yes Helmet use: sometimes Drive intox or ride w/intox electric lift truck driver: No Do you feel safe at home: Yes Do you feel safe in your relationship?: Yes Female Reproductive History Menstrual Menopause type: natural Date of menopause: 10/13/19 History History 4 Para 3 Hx # Term Pregnancies Multiple births 0 Hx # Pregnancies Ectopic pregnancies 1 AB induced Hx Number of Living Children 3 AB spontaneous Past Pregnancies Del. Date GA/Weeks # Preg Succ Route Wgt Sex Labor Lgth Anesth esia Location Prov Complic 06/21/82 40 No vaginal Female 01/02/84 40 No vaginal Male 05/20/85 40 No vaginal Male Meds Allergies and Home Medications Allergies Allergy/AdvReac Type Severity Reaction Status Date / Time adhesive tape Allergy Intermediate Skin Rash Verified 02/11/24 10:10 Penicillins Allergy Intermediate RASH; HIVES Verified 02/11/24 10:10 Latex, Natural Rubber Allergy Unknown Topical Verified 02/11/24 10:10 Irritation Home Medications Medication Instructions Recorded Confirmed Type atorvastatin 10 mg tablet 10 mg PO QHS #90 tabs 03/20/23 02/11/24 Rx celecoxib 200 mg capsule (Celebrex) 200 mg PO BID PRN pain #60 caps 12/18/23 02/11/24 Rx Exam Resp Effort & Inspection: normal respiratory effort Auscultation: clear to auscultation bilaterally Cardio Rate: regular rate Rhythm: regular rhythm
--- NOTE | 2024-02-11 10:36 | ANES.PREOP_ITS ---
General Info Date of Service Date Performed: 02/11/24 Height: 5 ft 6 in Weight: 112.5 kg Body Mass Index (BMI): 40.0 Surgical Procedure: Operation Date: 02/11/24 12:40 Proposed Procedure Side Surgeon p Knee Manipulation of Knee Right Dayday Penn MD Meds Allergies and Home Medications Allergies Allergy/AdvReac Type Severity Reaction Status Date / Time adhesive tape Allergy Intermediate Skin Rash Verified 02/11/24 10:10 Penicillins Allergy Intermediate RASH; HIVES Verified 02/11/24 10:10 Latex, Natural Rubber Allergy Unknown Topical Verified 02/11/24 10:10 Irritation Home Medication Medication Instructions Recorded atorvastatin 10 mg tablet 10 mg PO QHS #90 tabs 03/20/23 celecoxib 200 mg capsule (Celebrex) 200 mg PO BID PRN pain #60 caps 12/18/23 Current Visit Medications: Current Medications Generic Name Dose Route Start Last Admin Trade Name Freq PRN Reason Stop Dose Admin Ringer's Solution 1,000 mls @ 80 mls/hr 02/11/24 06:00 IV 02/11/24 23:59 INFUSION CORINE IV Miscellaneous Supplies 1 each 02/11/24 06:00 Iv Access IV 02/11/24 23:59 DIRECTED CORINE Sodium Chloride 0 ml 02/11/24 06:00 Normal Saline Flush 10 Ml Syr IV 02/11/24 23:59 PRN PRN Sodium Chloride 0 ml 02/11/24 06:00 Normal Saline 10 Ml Vial IJ 02/11/24 23:59 DIRECTED PRN Sterile Water 0 ml 02/11/24 06:00 Water,Injection,Sterile 10 Ml Vial IJ 02/11/24 23:59 DIRECTED PRN PFSH Active Problems Active Problems: Problem Status Onset Code Arthrofibrosis of total knee arthroplasty T84.82XA History of total right knee replacement 11/18/23 Z96.651 Helicobacter pylori (H. pylori) A04.8 Foot pain M79.673 Postconcussion syndrome F07.81 Foreign body of knee S80.259A Derangement of medial meniscus of right knee due to old injury M23.203 Chondromalacia, right knee M94.261 Obesity (BMI 35.0-39.9 without comorbidity) E66.9 Prediabetes R73.03 Depressive disorder F32.9 Anxiety F41.9 Varicose veins of lower extremity I83.90 Seasonal allergic rhinitis J30.2 Migraine G43.909 Ganglion cyst 08/22/17 M67.40 Medical History Medical History Hyperlipemia Other ectopic without intrauterine Obesity Seasonal allergies Depression Anxiety Migraine Surgical History Surgical History Status post arthroscopy of right shoulder Dr. aCrranza Status post right foot surgery Has pin in her right foot after horse injury History of bilateral ligation of fallopian tubes History of vein stripping Status post appendectomy Status post arthroscopy of right knee (08/17/14) Most recent: 11/30/2021 Status post cholecystectomy Repair, ACL 08/17/14 [facility] Tobacco Smoking/Tobacco Use Status: Never Passive smoking exposure: Yes Second hand exposure: Yes Alcohol Alcohol Intake: current Alcohol intake frequency: holidays/special occasions only Alcohol type: wine and hard liquor Substance Use Substance use: Occasionally Substance use type: marijuana Details: Edibles, Monthly or less per patient packet Prental History History 4 Para 3 Hx # Term Pregnancies Multiple births 0 Hx # Pregnancies Ectopic pregnancies 1 AB induced Hx Number of Living Children 3 AB spontaneous Past Pregnancies Del. Date GA/Weeks # Preg Succ Route Wgt Sex Labor Lgth Anesth esia Location Prov Complic 06/21/82 40 No vaginal Female 01/02/84 40 No vaginal Male 05/20/85 40 No vaginal Male Vital Signs and Lab Results Vital Signs Most Recent Vital Signs in EMR: Most Recent Vital Signs Resp BP Pulse Ox 18 155/88 H 98 02/11/24 09:56 02/11/24 09:56 02/11/24 09:56 Lab Results Blood Type / Crossmatch: No Data to Display Complete Blood Count: No Data to Display Complete Metabolic Panel: No Data to Display Liver Function Panel: No Data to Display Coagulation Panel: No Data to Display Cardiac Panel: No Data to Display Arterial Blood Gas: No Data to Display Venous Blood Gas: 2 No Data to Display Pancreas Panel: No Data to Display Thyroid Panel: No Data to Display Infectious Disease: No Data to Display Blood Cultures: No Data to Display Toxicology Panel: No Data to Display Imaging and Studies Imaging and Studies Study information below may be from another EMR and interpreted by another provider. Please see original notes in EMR for more complete details. EKG Summary: SR, left atrial enlargement 02/05/19 Anesthesia Assessment and Plan Anesthesia History Personal History: No History of Anesthesia Complications Family History: No Family History of Anesthesia Complications Exercise Tolerance Exercise Tolerance: Metabolic Equivalents>4 Pertinent Negatives Pertinent Negatives: No Symptoms of GERD, No Major Cardiovascular Symptoms or Complaints and No Major Pulmonary Symptoms or Complaints Cardiac & Pulmonary Exam Cardiac Exam: Normal S1/S2 Heart Sounds Pulmonary Exam: Clear Bilateral Breath Sounds Implantable Cardiac Device Does patient have a Pacemaker or an ICD?: No Airway Exam Known Difficult Airway: No Mallampati Class: 2 Mouth Opening: Normal (> 3cm) Thyromental Distance: Less than 3 cm Neck Range of Motion: Full ROM Neck Circumference: Normal Teeth Condition: Normal Dentition ASA Classification ASA Score: ASA 3 Emergency Case?: No NPO Status NPO Status: NPO Clears >2 hours, Solids >8 hours Anesthesia Plan Resuscitation Status: Full Code Anesthesia Technique: General Anesthesia Airway Planned: Natural Airway Monitors Used: Standard Monitors Preoperative Comments:: Rescue Block
[2024-02-11] MEDS: Lactated Ringers 1,000 ML 80 ML IV (10:51)
[2024-02-11] MEDS: Bupivacaine 0.25% Pres-Free 30 ML VIAL (11:39)
--- NOTE | 2024-02-11 11:50 | PDOC.DSDIS_ITS ---
Date of service: 02/11/24 Time of Service: 11:51 Discharge Plan Disposition Patient Disposition: Home Discharge Details Attending Provider: Dayday Penn Primary Care Provider: Alan Medina Home Meds and New Rx's Prescriptions: New acetaminophen 500 mg tablet 500 mg PO Q6H PRN PRN (Reason: pain) Qty: 60 3RF hydrocodone-acetaminophen 5-325 mg tablet 1 tab PO Q6H PRN (Reason: pain) Qty: 12 0RF ibuprofen 600 mg tablet 600 mg PO TID PRN (Reason: pain) Qty: 90 3RF Continued atorvastatin 10 mg tablet 10 mg PO QHS Qty: 90 3RF Discontinued celecoxib [Celebrex] 200 mg capsule 200 mg PO BID PRN (Reason: pain) Qty: 60 0RF Rx Instructions: Take one tablet twice daily for pain and inflammation Discharge Instructions Additional Instructions: Knee Manipulation Discharge Instructions Activity: You should begin moving as soon as possible. You may work on flexion but also equally maintain extension. You may bear weight as tolerated, using crutches only for support/comfort. You should apply ice to help with swelling and elevate when possible (especially in the first few days). Dressings: Bandaid may be removed later today Medications: - Rarely does this require any stronger pain medications, but may be necessary. Hydrocodone was called in for this. - Recommend to take up to 500mg of Acetaminophen (Tylenol) and 600mg of Ibuprofen (Advil) every 8 hours as needed. These larger strength tablets were called in but you also may use [id number]. Follow-up: 7-10 days Stand Alone Forms: Anesthesia Discharge InstYuval, Audrey Morse (U) Referrals: Dayday Penn MD [ [facility] STAFF PHYSICIAN] - 02/26/24 9:15 am Equipment/Supplies: Walker Activity:: Activity as Tolerated Remove Dressings/Wound Care:: 24 hours Shower/Bathe:: 24 hours Diet:: As Tolerated Discharge Orders Discharge Orders: Discharge Order (Routine); Ordered 02/11/24 Ordered By: Dayday Penn DS: Diagnosis Discharge Diagnosis (1) Arthrofibrosis of total knee arthroplasty: Status: Acute
--- NOTE | 2024-02-11 12:01 | ROE_ITS ---
Date of service: 02/11/24 Time of Service: 11:45 Operative Note Operative Note DATE OF PROCEDURE: 02/11/24 PRE-OP DIAGNOSIS: Right Knee Arthrofibrosis s/p Replacement POST-OP DIAGNOSIS: same PROCEDURE: Left Knee Manipulation Under Anesthesia SURGEON: Dayday Penn ANESTHESIA TYPE: General:No Airway Refer to Anesthesia Record ESTIMATED BLOOD LOSS: 0 PATHOLOGY: none sent TOURNIQUET TIME: 0 COMPLICATIONS: None Patient was transported to: PACU Patient's condition: stable Indications: Juno is a 58 year old female who is s/p knee replacement. Despite diligent work with physical therapy there has been continued stiffness. To assist with mobility, I offered a manipulation under anesthesia. I discussed the risks of the procedure to include bleeding, pain, recurrent stiffness, fracture. Despite these risks, she elects to proceed. Findings: Preoperative flexion = 95 Postoperative flexion = 115 Preoperative extension = 0 Postoperative extension = 0 Procedure Description: The patient was greeted in the preoperative holding area. Identity was confirmed and the correct side was identified and marked. The consent was reviewed the patient and signed. History and physical was updated. Juno was taken back to the operating room. The right side was identified as the correct side. A timeout was performed for safe surgery. A general anesthetic was administered. The knee was then prepped with ChloraPrep and an intra-articular injection of 10 cc of 0.5% bupivacaine was administered. Once a muscle relaxant was fully on board manipulation was performed. Pre- manipulation range of motion was noted. A gentle manipulation was performed first into flexion using a very small lever arm and adding gentle and progressive pressure to the tibia. There is audible and palpable crepitus with improvement in range of motion. This was cycled and repeated multiple times. The leg was then brought into extension and gentle anterior posterior pressure was applied with a supported hand behind the proximal tibia and knee. This was brought back into flexion was once again manipulated with gentle and progressive pressure. Final range of motion numbers were recorded, with an improvement of her flexion from at least 95 degrees to 115 degrees. A Band-Aid was applied to the injection site. She was awakened from anesthesia and taken to the PACU in stable condition.
--- NOTE | 2024-02-11 12:43 | W.ANESPOSTOP ---
Postoperative Evaluation Date, Time and Location Date Performed: 02/11/24 Time Performed: 12:43 Patient Location: Day Surgery Unit Vital Signs Most Recent Imported Vital Signs: Most Recent Vital Signs Temp Pulse Resp BP Pulse Ox 36.3 C L 75 20 130/85 99 02/11/24 12:15 02/11/24 12:15 02/11/24 12:15 02/11/24 12:15 02/11/24 12:15 Pain Score Most Recent Pain Score: Most Recent Pain Score Pain Level 5 02/11/24 12:15 Assessment Mental Status: Awake (Alert & Oriented to Patient Baseline) Airway and Respiratory Function: Patent airway with normal (patient baseline) respiratory exam Cardiovascular Function: Hemodynamically Stable Hydration Status: Adequately Hydrated Nausea & Vomiting: No Nausea or Vomiting Pain: Pain is tolerable per patient Peripheral Nerve Block: Patient did not receive a nerve block
== END 2024-02-11 13:07 | disposition home or self-care (01) ==
LOC: SUR 09:53
PROVIDERS: PCP Nurse Practitioner Family; Visit Provider Student in an Organized Health Care Education/Training Program
PROC: (CPT 27570; principal; 2024-02-11 12:30)
DX: T84.82XA Fibrosis due to internal orthopedic prosthetic devices, implants and grafts, initial encounter (principal); Z96.651 Presence of right artificial knee joint; E66.9 Obesity, unspecified; R73.03 Prediabetes
CPT/HCPCS: 27570; J0330; J0665; J2001; J2250; J2405; J2704

== ENCOUNTER 2024-03-05 18:30 | Outpatient (REF) | payer BC, SELFPAY ==
[2024-03-05 19:22] LABS: ALT 32 U/L (14-59); AST 12 U/L (15-37); Albumin 3.9 g/dL (3.4-5.0); Alkaline Phosphatase 113 U/L (46-116); Anion Gap 6.2 mmol/L (3-11); BUN 18 mg/dL (7-18); Bilirubin, Total 0.3 mg/dL (0.2-1.0); CO2 26.8 mmol/L (21.0-32.0); CREATININE 0.8 mg/dL (0.55-1.02); Calcium 9.2 mg/dL (8.5-10.1); Calculated LDL 76 mg/dL (<100); Chloride 107 mmol/L (98-107); Cholesterol 162 mg/dL (<200); Estimated GFR 84.82 (mL/min/1.73m2); Glucose 105 mg/dL (74-106); HDL Cholesterol 56 mg/dL (40-60); Potassium 4.5 mmol/L (3.5-5.1); Sodium 140 mmol/L (136-145); Total Protein 7.1 g/dL (6.4-8.2); Triglyceride 151 mg/dL (<150)
== END 2024-03-05 18:31 | disposition home or self-care (01) ==
LOC: LBN 18:30
PROVIDERS: PCP Nurse Practitioner Family; Visit Provider Nurse Practitioner Family
DX: R73.03 Prediabetes (principal)
CPT/HCPCS: 80053; 80061

== ENCOUNTER 2024-08-03 07:58 | Day surgery (SDC) | payer BC, SELFPAY ==
[2024-08-03] VITALS (26 sets, daily range): BP systolic 126–153; BP diastolic 65–95; PULSE 54–85; RESP 12–21; TEMP 36.1–36.7; O2SAT 96–99; BMI 37.5
--- NOTE | 2024-08-03 07:36 | W.PM.DSUDISC ---
Date of service: 08/03/24 Time of Service: 07:41 Discharge Plan Disposition Patient Disposition: Home Condition: Good Discharge Details Reason For Visit: Arthrofibrosis of right TKA Attending Provider: Dayday Penn Primary Care Provider: Alan Medina Home Meds and New Rx's Prescriptions: New acetaminophen 500 mg tablet 1,000 mg PO Q8H PRN Qty: 90 0RF Rx Instructions: Take two tablets up to every 8 hours as needed for pain hydrocodone-acetaminophen 5-325 mg tablet 1 tab PO Q6H PRN (Reason: severe pain) Qty: 6 0RF Rx Instructions: Take one tablet up to every 6 hours as needed for severe postoperative pain ibuprofen 600 mg tablet 600 mg PO TID PRN (Reason: pain) Qty: 60 0RF Continued atorvastatin 10 mg tablet 10 mg PO QHS Qty: 90 3RF semaglutide (weight loss) 2.4 mg/0.75 mL pen injector 2.4 mg subcut QWEEK Qty: 3 11RF Rx Instructions: For 4 weeks Discontinued ibuprofen 600 mg tablet 600 mg PO TID PRN (Reason: pain) Qty: 90 1RF Discharge Instructions Additional Instructions: Knee Manipulation and Arthroscopic Synovectomy Discharge Instructions Activity: You should begin moving as soon as possible. You may work on flexion but also equally maintain extension. You may bear weight as tolerated, using crutches only for support/comfort. You should apply ice to help with swelling and elevate when possible (especially in the first few days). Dressings: The knee dressing may come down after 48 hours. You may shower and get the wound wet at that time. You should keep the wounds covered with a bandaid until follow-up. Medications: - You have been prescribed a narcotic Hydrocodone to take as needed for severe pain. - Recommend to take up to 1000mg of Acetaminophen (Tylenol) and 600mg of Ibuprofen (Advil) every 8 hours as needed. These larger strength tablets were called in but you also may use [id number]. Follow-up: 7-10 days Referrals: Dayday Penn MD [ [facility] STAFF PHYSICIAN] - Equipment/Supplies: Partial Weight Bearing Crutches Activity:: Elevate Remove Dressings/Wound Care:: 48 hours Shower/Bathe:: 48 hours Diet:: As Tolerated Discharge Orders Discharge Orders: Discharge Order (Routine); Ordered 08/03/24 Ordered By: Manuela Cornelius
--- NOTE | 2024-08-03 08:39 | ANES.PREOP_ITS ---
General Info Date of Service Date Performed: 08/03/24 Height: 5 ft 6 in Weight: 105.7 kg Body Mass Index (BMI): 37.5 Surgical Procedure: Operation Date: 08/03/24 09:25 Proposed Procedure Side Surgeon p Knee Arthroscopy, Synovectomy Right Dayday Penn MD Actual Procedure Side Surgeon p Knee Arthroscopy, Synovectomy Right Dayday Penn MD Pre-Op Diagnosis Post-Op Diagnosis Arthrofibrosis of total knee arthroplasty Meds Allergies and Home Medications Allergies Allergy/AdvReac Type Severity Reaction Status Date / Time adhesive tape Allergy Intermediate Skin Rash Verified 08/03/24 08:25 Penicillins Allergy Intermediate RASH; HIVES Verified 08/03/24 08:25 Latex, Natural Rubber Allergy Unknown Topical Verified 08/03/24 08:25 Irritation Home Medication ?Medication ?Instructions ?Recorded atorvastatin 10 mg tablet 10 mg PO QHS #90 tabs 06/08/24 semaglutide (weight loss) 2.4 2.4 mg (0.75 mL) subcut QWEEK #3 mL 08/02/24 mg/0.75 mL subcutaneous pen injector acetaminophen 500 mg tablet 1,000 mg (2 x 500 mg) PO Q8H PRN 08/03/24 pain #90 tabs hydrocodone 5 mg-acetaminophen 325 1 tab PO Q6H PRN severe pain #6 08/03/24 mg tablet tabs ibuprofen 600 mg tablet 600 mg PO TID PRN pain #60 tabs 08/03/24 Current Visit Medications: Current Medications Generic Name Dose Route Start Last Admin Trade Name Freq PRN Reason Stop Dose Admin Acetaminophen 1,000 mg 08/03/24 06:00 Acetaminophen 500 Mg Tab PO 09/01/24 23:59 PREOP CORINE Acetaminophen 650 mg 08/03/24 07:34 Acetaminophen 325 Mg Tab PO 09/02/24 07:33 Q4H PRN PRN Hydrocodone Bitart/Acetaminophen 0 tab 08/03/24 07:34 Hydrocodone 5/Acetaminophen 325 Tab PO 09/02/24 07:33 Q3H PRN PRN Pain Celecoxib 400 mg 08/03/24 06:00 Celecoxib 200 Mg Cap PO 09/01/24 23:59 PREOP CORINE Ringer's Solution 1,000 mls @ 80 mls/hr 08/03/24 06:00 IV 11/20/24 23:59 INFUSION CORINE Tranexamic Acid/Sodium Chloride 1,000 mg in 100 mls @ 600 mls/hr 08/03/24 06:00 IVPB 09/01/24 23:59 PREOP CORINE Cefazolin Sodium/Dextrose 2 gm in 50 mls @ 100 mls/hr 08/03/24 06:00 Ancef Duplex IVPB 09/01/24 23:59 PREOP CORINE IV Miscellaneous Supplies 1 each 08/03/24 06:00 Iv Access IV 09/01/24 23:59 DIRECTED CORINE Sodium Chloride 0 ml 08/03/24 06:00 Normal Saline Flush 10 Ml Syr IV 09/01/24 23:59 PRN PRN Sodium Chloride 0 ml 08/03/24 06:00 Normal Saline 10 Ml Vial IJ 09/01/24 23:59 DIRECTED PRN Sterile Water 0 ml 08/03/24 06:00 Water,Injection,Sterile 10 Ml Vial IJ 09/01/24 23:59 DIRECTED PRN PFSH Active Problems Active Problems: Problem Status Onset Code Arthrofibrosis of total knee arthroplasty Acute T84.82XA History of total right knee replacement Acute 11/18/23 Z96.651 Helicobacter pylori (H. pylori) Acute A04.8 Foot pain Acute M79.673 Postconcussion syndrome Acute F07.81 Foreign body of knee Acute S80.259A Derangement of medial meniscus of right knee due to old injury Acute M23.203 Chondromalacia, right knee Acute M94.261 Obesity (BMI 35.0-39.9 without comorbidity) Acute E66.9 Prediabetes Acute R73.03 Depressive disorder Acute F32.9 Anxiety Chronic F41.9 Varicose veins of lower extremity Acute I83.90 Seasonal allergic rhinitis Acute J30.2 Migraine Acute G43.909 Ganglion cyst Acute 08/22/17 M67.40 Medical History Medical History Hyperlipemia Other ectopic without intrauterine Obesity Seasonal allergies Depression Anxiety Migraine Surgical History Surgical History Status post arthroscopy of right shoulder Dr. Carranza Status post right foot surgery Has pin in her right foot after horse injury History of bilateral ligation of fallopian tubes History of vein stripping Status post appendectomy Status post arthroscopy of right knee (08/17/14) Most recent: 11/30/2021 Status post cholecystectomy Repair, ACL 08/17/14 [facility] Tobacco Smoking/Tobacco Use Status: Never Passive smoking exposure: Yes Second hand exposure: Yes Alcohol Alcohol Intake: current Alcohol intake frequency: holidays/special occasions only Alcohol type: wine and hard liquor Substance Use Substance use: Occasionally Substance use type: marijuana Details: Edibles Prental History History 4 Para 3 Hx # Term Pregnancies Multiple births 0 Hx # Pregnancies Ectopic pregnancies 1 AB induced Hx Number of Living Children 3 AB spontaneous Past Pregnancies Del. Date GA/Weeks # Preg Succ Route Wgt Sex Labor Lgth Anesth esia Location Prov Complic 06/21/82 40 No vaginal Female 01/02/84 40 No vaginal Male 05/20/85 40 No vaginal Male Vital Signs and Lab Results Vital Signs Most Recent Vital Signs in EMR: Most Recent Vital Signs Temp Pulse Resp BP Pulse Ox 36.1 C L 85 16 143/95 H 96 08/03/24 08:15 08/03/24 08:15 08/03/24 08:15 08/03/24 08:15 08/03/24 08:15 Lab Results Blood Type / Crossmatch: No Data to Display Complete Blood Count: No Data to Display Complete Metabolic Panel: No Data to Display Liver Function Panel: No Data to Display Coagulation Panel: No Data to Display Cardiac Panel: No Data to Display Arterial Blood Gas: No Data to Display Venous Blood Gas: No Data to Display Pancreas Panel: No Data to Display Thyroid Panel: No Data to Display Infectious Disease: No Data to Display Blood Cultures: No Data to Display Toxicology Panel: No Data to Display Imaging and Studies Imaging and Studies Study information below may be from another EMR and interpreted by another provider. Please see original notes in EMR for more complete details. EKG Summary: SR, left atrial enlargement 02/05/19 Anesthesia Assessment and Plan Anesthesia History Personal History: No History of Anesthesia Complications Family History: No Family History of Anesthesia Complications Exercise Tolerance Exercise Tolerance: Metabolic Equivalents>4 Pertinent Negatives Pertinent Negatives: No Symptoms of GERD Cardiac & Pulmonary Exam Cardiac Exam: Normal S1/S2 Heart Sounds Pulmonary Exam: Clear Bilateral Breath Sounds Implantable Cardiac Device Does patient have a Pacemaker or an ICD?: No Airway Exam Known Difficult Airway: No Mallampati Class: 2 Mouth Opening: Normal (> 3cm) Thyromental Distance: Less than 3 cm Neck Range of Motion: Full ROM Neck Circumference: Normal Teeth Condition: Normal Dentition ASA Classification ASA Score: ASA 2 Emergency Case?: No NPO Status NPO Status: NPO Clears >2 hours, Solids >8 hours Anesthesia Plan Resuscitation Status: Full Code Anesthesia Technique: General Anesthesia Airway Planned: LMA Monitors Used: Standard Monitors
[2024-08-03] MEDS: Celecoxib 200 MG CAP 400 MG PO (08:45)
[2024-08-03] MEDS: Acetaminophen 500 MG TAB 1000 MG PO (08:45)
[2024-08-03] MEDS: Lactated Ringers 1,000 ML 80 ML IV (08:55)
[2024-08-03] MEDS: ceFAZolin 2 GM/50 ML BAG IVPB (09:30)
[2024-08-03] MEDS: TRANEXAMIC ACID/SOD. CHL. 1,000 MG/100 ML BAG 600 MG IVPB (09:35)
[2024-08-03] MEDS: EPINEPHrine 10 MG/10 ML ML (09:41)
[2024-08-03] MEDS: Bupivacaine 0.25% Pres-Free 30 ML VIAL (09:41)
--- NOTE | 2024-08-03 10:32 | W.PM.OP ---
Date of service: 08/03/24 Time of Service: 10:32 Operative Note Operative Note DATE OF PROCEDURE: 08/03/24 PRE-OP DIAGNOSIS: Arthrofibrosis and Crepitus of Knee Replacement - Right Knee POST-OP DIAGNOSIS: same PROCEDURE: Arthroscopic Synovectomy of 3 Compartments - RIGHT Knee SURGEON: Dayday Penn ANESTHESIA TYPE: General LMA/ETT Refer to Anesthesia Record ESTIMATED BLOOD LOSS: 20 PATHOLOGY: none sent COMPLICATIONS: None Patient was transported to: PACU Patient's condition: stable Indications: I have seen Elke in clinic for symptoms of arthrofibrosis and crepitus of the knee following knee replacement surgery. Nonoperative measures were exhausted but disability due to lack of motion persisted. I discussed knee arthroscopy with synovectomy with maniuplation with the patient. I reviewed the risks of the procedure to include, but not limited to, bleeding, infection, pain, continued stiffness, recurrence, blood clot. Despite these risks, the patient elected to proceed. Findings: Preoperative Range of Motion: Flexion: 105 Extension:10 Postoperative Range of Motion: Flexion:120 Extension:5-10 Procedure Description: Elke was greeted in the preoperative holding area where the correct side was identified and marked. The consent was reviewed with the patient and signed. The history and physical was updated. All questions were answered. She was taken back to the operating room. The patient was placed into the supine position on the operating room table. All bony prominences were well padded. Prophylactic antibiotics in the form of Cefazolin were administered. Preoperative range of motion was assessed as 10 - 105. The right leg was then prepped with Chloraprep and draped in a standard fashion with stockinette and extremity drape. A timeout to confirm correct identity, side and site, procedure, allergies, anesthesia, and medical concerns was performed. The leg was placed into a pneumatic leg garcia, [email or web address]. A standard lateral portal was made at the lateral border of the patella tendon in line with the inferior pole of the patella, soft spot. The skin and deep tissue was incised sharply and the blunt trochar was inserted atraumatically. At this point had visualization of the femoral component. A superolateral portal was then established with spinal needle localization just superior and lateral to the patella. A knife was taken down through the skin and soft tissue to enter the knee joint. Starting in the superior compartment above the femoral component and anterior to the femur I released all scarring between the anterior femoral synovium and the overlying extensor mechanism. This was taken through all of any noticeable scar tissue until the superior patellar pouch was fully released and mobile. This resection was carried out mostly with electrocautery as well as shaver. Once this was released fully from lateral to medial superiorly I then continue working down the lateral gutter. All scar tissue in the lateral gutter was released so there is normal space and movement between the capsular tissues and the edge of the femoral component and femur. This was taken down through the lateral gutter such that I was able to identify the polyethylene to its posterior corner. Once again, all scar tissue in this area was resected so the polyethylene was easily visible and there is no interposed tissue in the back or the polyethylene was identified. I think continue to work anteriorly. To continue the synovectomy from the lateral compartment to the anterior compartment into the medial compartment, I placed a medial portal under spinal needle localization. Once this was in place it became another working portal and I continued the synovectomy through the anterior compartment to the medial compartment. There was notable synovitis in this area. Once again, I freed up the medial gutter so I was able to visualize the polyethylene from the anterior posterior margins. There is no interposed tissue after full synovectomy was performed. Adhesions between the capsule and the femur were released. This was continued up the medial gutter until it met up with the releases performed previously in the superior compartment. Any remnant scar tissue from around the patella was then removed with a shaver and electrocautery. The arthroscope was brought back into the suprapatellar pouch and the leg was in full extension. The knee was thoroughly irrigated with the arthroscopic fluid on high flow and pressure. Inflow was stopped and excess fluid was removed. The leg was removed from the spider leg garcia and manipulation was performed. I first push the knee into flexion and was able to obtain 120 degrees. I then worked the knee into extension, slowly applying an anterior to posterior directed pressure with support of the knee and no significant lever arm. This was cycled multiple times until I was able to obtain extension of 5-10 degrees. The wounds were closed with 4-0 Nylon. 0.25% ropivacaine was injected around the portal sites and into the knee. The wounds were dressed with Xeroform, 4x4 gauze, ABD pad, Kerlix and an YAEL wrap. A cryo-cuff was applied. The patient tolerated the procedure well and was returned to the Same Day Surgery area in a stable condition suffering no known complication..
[2024-08-03] MEDS: fentaNYL 100 MCG/2 ML VIAL IVP (10:46)
--- NOTE | 2024-08-03 12:51 | W.ANESPOSTOP ---
Postoperative Evaluation Date, Time and Location Date Performed: 08/03/24 Time Performed: 12:53 Patient Location: Day Surgery Unit Vital Signs Most Recent Imported Vital Signs: Most Recent Vital Signs Temp Pulse Resp BP Pulse Ox 36.4 C L 61 16 135/78 97 08/03/24 11:38 08/03/24 11:38 08/03/24 11:38 08/03/24 11:38 08/03/24 11:38 Pain Score Most Recent Pain Score: Most Recent Pain Score Pain Level 3 08/03/24 11:38 Assessment Mental Status: Awake (Alert & Oriented to Patient Baseline) Airway and Respiratory Function: Patent airway with normal (patient baseline) respiratory exam Cardiovascular Function: Hemodynamically Stable Hydration Status: Adequately Hydrated Nausea & Vomiting: No Nausea or Vomiting Pain: Pt. Denies Any Pain Peripheral Nerve Block: Patient did not receive a nerve block
== END 2024-08-03 13:00 | disposition home or self-care (01) ==
LOC: SUR 07:59
PROVIDERS: PCP Nurse Practitioner Family; Visit Provider Student in an Organized Health Care Education/Training Program
PROC: (CPT 29870; principal; 2024-08-03 09:15)
DX: T84.82XA Fibrosis due to internal orthopedic prosthetic devices, implants and grafts, initial encounter (principal); Z96.651 Presence of right artificial knee joint; E66.9 Obesity, unspecified; R73.03 Prediabetes; E78.5 Hyperlipidemia, unspecified; Z68.37 Body mass index [BMI] 37.0-37.9, adult
CPT/HCPCS: 29876; J0665; J0690; J1100; J2405; J2704; J3010

== ENCOUNTER 2024-09-23 03:29 | Outpatient (CLI) | payer BC, SELFPAY ==
[2024-09-23 15:08] LABS: HCT 43.1 % (36.0-46.0); MCH 29.5 pg (27.0-33.0); MCHC 32.5 % (32.0-36.0); MCV 91 fL (80-95); MPV 8.9 fL (8.0-11.0); Platelet Count 361 10^3/uL (130-400); RBC 4.75 10^6/uL (3.93-5.22); RDW 12.3 % (11.7-14.6); RDW-SD 40.9 fL; WBC 11.39 10^3/uL (4.4-10.8)
[2024-09-23 15:11] LABS: ESR 14 mm/hr (0-30)
[2024-09-23 15:25] LABS: Anion Gap 9.8 mmol/L (3-11); BUN 27 mg/dL (7-18); CO2 29.2 mmol/L (21.0-32.0); Chloride 103 mmol/L (98-107); Estimated GFR 64.49 (mL/min/1.73m2); Glucose 106 mg/dL (74-106); Potassium 4.4 mmol/L (3.5-5.1); Sodium 142 mmol/L (136-145)
== END 2024-09-23 03:30 | disposition home or self-care (01) ==
LOC: LBO 03:29
PROVIDERS: PCP Nurse Practitioner Family; Visit Provider Student in an Organized Health Care Education/Training Program
DX: T84.82XA Fibrosis due to internal orthopedic prosthetic devices, implants and grafts, initial encounter (principal); Z96.651 Presence of right artificial knee joint
CPT/HCPCS: 36415; 80048; 85027; 85652

== ENCOUNTER 2024-11-18 15:28 | Outpatient (CLI) | payer BC, SELFPAY ==
--- NOTE | 2024-11-18 13:15 | DI.RAD_ITS ---
Exam(s) XR KNEE RT 2V AP,LAT EXAM: XR KNEE RT 2V AP,LAT INDICATION: F/U RIGHT TKA. COMPARISON: CR XR KNEE RT 1V from 12/01/2023 TECHNIQUE: 2D digital imaging was performed. Two views. FINDINGS: Stable alignment of total knee prosthesis. No abnormal surrounding bony lucencies. Prior ACL repair again noted. DATA REPOSITORY: RADIATION DOSE DELIVERED:
== END 2024-11-18 15:29 | disposition home or self-care (01) ==
LOC: DIORS 15:29
PROVIDERS: PCP Nurse Practitioner Family; Visit Provider Student in an Organized Health Care Education/Training Program
DX: Z96.651 Presence of right artificial knee joint (principal); Z47.1 Aftercare following joint replacement surgery
CPT/HCPCS: 73560

== ENCOUNTER 2025-02-01 03:46 | Outpatient (CLI) | payer BC, SELFPAY ==
[2025-02-01 09:54] LABS: Abs Immature Grans 0.02 10^3/uL (0.0-0.06); Absolute Basophil Count 0.04 10^3/uL (0.0-0.2); Absolute Eosinophil Count 0.04 10^3/uL (0.0-0.7); Absolute Lymphocyte Count 1.73 10^3/uL (1.2-3.4); Absolute Monocyte Count 0.59 10^3/uL (0.1-0.8); Absolute Neutrophil Count 7.72 10^3/uL (1.2-6.7); Basophils % 0.4 %; Eosinophils % 0.4 %; HCT 43.9 % (36.0-46.0); Immature Grans % 0.2 %; Lymphocytes % 17.1 %; MCH 29.5 pg (27.0-33.0); MCHC 31.9 % (32.0-36.0); MCV 92 fL (80-95); Monocytes % 5.8 %; Neutrophils % 76.1 %; Platelet Count 333 10^3/uL (130-400); RBC 4.75 10^6/uL (3.93-5.22); RDW-SD 41.2 fL; WBC 10.14 10^3/uL (4.4-10.8)
[2025-02-01 10:08] LABS: ALT 37 U/L (14-59); AST 18 U/L (15-37); Alkaline Phosphatase 137 U/L (46-116); Anion Gap 5.2 mmol/L (3-11); BUN 10 mg/dL (7-18); Bilirubin, Total 0.6 mg/dL (0.2-1.0); CO2 30.8 mmol/L (21.0-32.0); CREATININE 0.9 mg/dL (0.55-1.02); Calcium 10.1 mg/dL (8.5-10.1); Calculated LDL 67 mg/dL (<100); Chloride 104 mmol/L (98-107); Cholesterol 159 mg/dL (<200); Estimated GFR 73.19 (mL/min/1.73m2); Glucose 99 mg/dL (74-106); HDL Cholesterol 57 mg/dL (>or=50); Potassium 4.2 mmol/L (3.5-5.1); Sodium 140 mmol/L (136-145); Total Protein 7.9 g/dL (6.4-8.2); Triglyceride 178 mg/dL (<150)
[2025-02-02 10:00] LABS: HIV-1/2 Ag & Ab Screen Negative (Negative)
[2025-02-02 10:13] LABS: HBs Antibody, Quant <3.1 mIU/mL (See Note); Hep B Surface Ab Negative (See Note); Hepatitis B Core Antibody Negative (Negative); Hepatitis B Surface Antigen Negative (Negative)
[2025-02-02 10:20] LABS: Hepatitis C Ab w Rflx HCV PCR Negative (Negative)
== END 2025-02-01 03:47 | disposition home or self-care (01) ==
LOC: LBO 03:46
PROVIDERS: PCP Nurse Practitioner Family; Visit Provider Nurse Practitioner Family
DX: E78.2 Mixed hyperlipidemia (principal); S80.251A Superficial foreign body, right knee, initial encounter; Z11.4 Encounter for screening for human immunodeficiency virus [HIV]; Z11.59 Encounter for screening for other viral diseases
CPT/HCPCS: 36415; 80053; 80061; 86704; 86706; 86803; 87340; 87389; 85025

== ENCOUNTER 2025-03-11 00:28 | Outpatient (CLI) | payer BC, SELFPAY ==
--- NOTE | 2025-03-11 08:06 | DI.MAMMO_ITS ---
Exam(s) MAMMO SCREENING EXAM: MAMMO SCREENING CLINICAL HISTORY: screening,z12.39. TECHNIQUE: Bilateral full field digital CC and MLO mammographic images were obtained with 3D tomosyn thesis and utilizing computer aided detection (CAD). COMPARISON: Prior mammograms were reviewed. FINDINGS: There is further decrease in size of 1 left breast nodule. However, on the left MLO view there is a 9 x 7 mm nodular asymmetric density located 9 cm in from the nipple. Additional imaging recommended. No microcalcification groups in this region or elsewhere in either breast. No new significant right breast findings. There is no significant architectural distortion nor skin thickening-retraction. IMPRESSION: 1. No radiographic evidence of malignancy in right breast. 2. Possible new nodule in the left breast as described above. Spot compression left breast MLO view and ultrasound recommended. BI-RADS Category 0 - Incomplete: Need additional imaging evaluation Breast Density - Category B - There are scattered areas of fibroglandular density. Breast density Category C or D implies that the patient has dense breast tissue. Dense breast tissue can make it harder to find cancer on a mammogram. Dense breast tissue is also associated with an incr eased risk of breast cancer. This information about the result of the mammogram report was provided to the patient to raise their awareness. Use this report when you speak with the patient about their risks for breast cancer, which includes their family history. At that time, you may recommend additional screening tests (Ultrasoun d or MRI) as these tests may add significant information. A negative radiographic report should not delay biopsy if a dominant or clinically suspicious mass is present. Up to ten percent of cancers are not identified on mammography. A negative report may reinforce clinical impression. Adenosis and dense breasts may obscure an underlying neoplasm. False positive reports average 6 to 10%. Patient will receive a letter notifying them of these results.
== END 2025-03-11 00:48 ==
LOC: DI 00:28
PROVIDERS: PCP Nurse Practitioner Family; Visit Provider Nurse Practitioner Family
DX: Z12.31 Encounter for screening mammogram for malignant neoplasm of breast (principal); R92.323 Mammographic fibroglandular density, bilateral breasts
CPT/HCPCS: 77063; 77067

== ENCOUNTER 2025-03-17 02:11 | Outpatient (CLI) | payer BC, SELFPAY ==
--- NOTE | 2025-03-17 | DI.MAMMO_ITS ---
Exam(s) MG MAMMO SCREEN CALL BACK UNI US BREAST LT LIMITED EXAM: MG MAMMO SCREEN CALL BACK UNI and U/S breast LT limited CLINICAL HISTORY: 9 x 7 mm nodular density 9 cm from nipple, lt breast. TECHNIQUE: Craniocaudal and mediolateral oblique Full Field Digital Mammography views of the left br east with Computer Aided Diagnosis followed by Tomosynthesis and limited left breast ultrasound. COMPARISON: Comparison is made with prior examinations. FINDINGS: Mammography/Tomosynthesis: Masses/Architectural Distortion: The area of concern does not persist on the additional views. Microcalcifictions: No suspicious pleomorphic-type are seen. Skin Thickening/Nipple Retraction: None. Limited left breast US: Echotexture: Normal appearance of the glandular tissue. Shadowing: No suspicious foci. Cyst: None. Solid lesions: None seen. Ductal dilation: None. IMPRESSION: 1. No evidence of malignancy is noted. 2. Unless there is more urgent need, follow-up screening mammography is recommended, as per [place] [employer] guidelines. 3. The findings were discussed with the patient on the date of the examination. BI-RADS Category 1 - Negative Breast Density - Category B - There are scattered areas of fibroglandular density. Breast density Category C or D implies that the patient has dense breast tissue. Dense breast tissue can make it harder to find cancer on a mammogram. Dense breast tissue is also associated with an incr eased risk of breast cancer. This information about the result of the mammogram report was provided to the patient to raise their awareness. Use this report when you speak with the patient about their risks for breast cancer, which includes their family history. At that time, you may recommend additional screening tests (Ultrasoun d or MRI) as these tests may add significant information. A negative radiographic report should not delay biopsy if a dominant or clinically suspicious mass is present. Up to ten percent of cancers are not identified on mammography. A negative report may reinforce clinical impression. Adenosis and dense breasts may obscure an underlying neoplasm. False positive reports average 6 to 10%. Patient will receive a letter notifying them of these results.
== END 2025-03-17 02:31 ==
LOC: DI 02:12
PROVIDERS: PCP Nurse Practitioner Family; Visit Provider Nurse Practitioner Family
DX: Z12.31 Encounter for screening mammogram for malignant neoplasm of breast (principal); R92.323 Mammographic fibroglandular density, bilateral breasts
CPT/HCPCS: 76642; 77063; 77067